=== PATIENT | male | born 1990 ===

== ENCOUNTER 2025-01-20 07:39 | Inpatient (IN) | payer OTHER, SELFPAY ==
[2025-01-20] VITALS (9 sets, daily range): BP systolic 105–145; BP diastolic 74–90; PULSE 65–98; RESP 12–18; TEMP 36–37.2; O2SAT 84–96; BMI 29.0
--- NOTE | 2025-01-20 | ECG_ITS ---
Test Reason : R/O PROLONGED QT WAV Blood Pressure : */* mmHG Vent. Rate : 76 BPM Atrial Rate : 76 BPM P-R Int : 154 ms QRS Dur : 90 ms QT Int : 318 ms P-R-T Axes : 41 29 48 degrees QTcB Int : 357 ms Normal sinus rhythm Nonspecific T wave abnormality Abnormal ECG When compared with ECG of 20-Jan-2025 11:07, No significant change was found Referred By: Wilberto Zeng Electronically Signed By: Julio Anaya
--- NOTE | ~2025-01-20 | XR_ITS ---
EXAMINATION: XR CHEST CLINICAL INFORMATION: hypoxia, overdose, low grade temp COMPARISON: None available. TECHNIQUE: Frontal view of the chest was obtained. FINDINGS: No significant abnormality is noted involving the heart, lungs, mediastinum, bony thorax or soft tissues. XR/XR chest 1V IMPRESSION: No acute disease Electronically signed by: Kolby Cruz MD 01/20/2025 11:39 AM EDT
--- NOTE | 2025-01-20 08:05 | ED_ITS ---
HPI - General Adult General Chief complaint: Overdose Stated complaint: Took high methadone dose Time Seen by Provider: 01/20/25 08:03 Source: patient Mode of arrival: ambulatory Limitations: no limitations History of Present Illness ED Provider: Kym Arnett PA-C HPI narrative: Patient is a 34 year old assigned male at with a history of opiate use - currently on 35mg of methadone presenting to the emergency department today after an accidental overdose. Patient states that he is a patient of the [facility] and was accidentally given 150mg of Methadone by staff this morning instead of his usual 35mg. Patient denies any dizziness, lightheadedness, abdominal pain, nausea, vomiting, fever, chills, blurry vision, double vision, loss of vision, chest pain, difficulty breathing, shortness of breath, back pain, night sweats, pain with urination, increased urinary frequency, increased urinary urgency, blood in his urine or stool, syncope or a near syncopal episode, recent trauma or falls, bowel incontinence, bladder incontinence, or any other complaints at this time. Relieving factors: none Exacerbating factors: none Associated symptoms: denies other symptoms Treatments prior to arrival: none Related Data Home Medications ?Medication ?Instructions ?Recorded ?Confirmed aripiprazole 15 mg tablet 15 mg PO DAILY 01/20/25 atorvastatin 10 mg tablet 10 mg PO BEDTIME hyperlipide cynthia 01/20/25 buprenorphine 8 mg-naloxone 2 mg film sublingual 01/20 sublingual film (Suboxone) ciclopirox 8 % topical solution topical 01/20/25 diclofenac sodium 1 % topical gel 2 - 4 g topical QD-Q ID 01/20/25 fluoxetine 20 mg capsule 20 mg PO DAILY 01/20/25 fluoxetine 40 mg capsule 40 mg PO DAILY 01/20/25 hydroxyzine HCl 50 mg tablet 50 - 100 mg PO QD-QID PRN anxiety 01/20/25 oxcarbazepine 300 mg tablet 300 mg PO BID 01/20/25 prazosin 1 mg capsule 1 mg PO BEDTIME 01/20/25 trazodone 50 mg tablet 50 mg PO BEDTIME PRN insomni a 01/20/25 Allergies Allergy/AdvReac Type Severity Reaction Status Date / Time No Known Allergies Allergy Verified 01/20/25 07:52 Review of Systems 2 Constitutional: Constitutional: Reports no additional constitutional complaints, Denies chills, Denies fever(s) and Denies night sweats Eyes: Eyes: Reports no additional eye complaints, Denies blurry vision, Denies change in vision, Denies diplopia, Denies eye discharge, Denies loss of vision and Denies eye pain ENT: Denies dizziness Cardiovascular: Cardiovascular: Reports no additional cardiovascular complaints, Denies chest pain, Denies lightheadedness, Denies Loss of Consciousness and Denies dyspnea Respiratory: Respiratory: Reports no additional respiratory complaints and Denies dyspnea Gastrointestinal: Gastrointestinal: Reports no additional gastrointestinal complaints, Denies abdominal pain, Denies melena, Denies hematochezia, Denies change in bowel habits and Denies change in stool character Genitourinary: Genitourinary: Reports no additional male genitourinary complaints, Denies hematuria, Denies oliguria, Denies difficulty urinating, Denies dysuria, Denies urinary frequency, Denies urinary hesitancy, Denies urinary incontinence and Denies urinary urgency Musculoskeletal: Musculoskeletal: Reports no additional musculoskeletal complaints, Denies numbness and Denies tingling Neurologic: Denies dizziness, Denies loss of vision, Denies numbness and Denies tingling Psychiatric: Psychiatric: Reports no additional psychiatric complaints Endocrine: Endocrine: Reports no additional endocrine complaints Hematologic/Lymphatic: Hematologic/Lymphatic: Reports no additional hematologic/lymphatic complaints Allergic/Immunologic: Allergic/Immunologic: Reports no additional allergic/immunologic complaints [facility] Past Medical History Attestation statement: The following information was validated with the patient. Source: old records reviewed and nursing notes reviewed Medical History (Updated 01/20/25 @ 11:23 by SMILEY Benavidez) Opiate dependence Surgical History (Updated 01/20/25 @ 11:07 by Wilberto Zeng MD) No pertinent past surgical history Social History Social History (Updated 01/20/25 @ 11:08 by Wilberto Zeng MD) Alcohol intake: former Comment: November 2024 Smoked in Last 30 Days: No Use of substances other than those prescribed or required for medical reasons: Unable to respond Advance Directives: No Advance Directives Information Provided: Yes Physical Exam ED Vital Signs: Vital Signs - 24 hr 01/20/25 07:45 01/20/25 08:42 01/20/25 08:57 Temperature 96.8 F 97.9 F Pulse Rate 98 65 70 Respiratory Rate 18 12 12 Blood Pressure 124/74 107/80 Pulse Oximetry 96 84 L 91 L Oxygen Delivery Method Room Air Room Air Oxymask Oxygen Flow Rate 2 01/20/25 09:38 01/20/25 11:10 Temperature 99.0 F Pulse Rate 76 86 Respiratory Rate 18 16 Blood Pressure 139/90 H 145/79 H Pulse Oximetry 91 L 92 Oxygen Delivery Method Oxymask Oxymask Oxygen Flow Rate 2 2 BMI result Body Mass Index 29.0 Const General: cooperative, no acute distress, alert and awake Nutritional Appearance: well nourished Orientation/consciousness: patient oriented x3 HENMT Head: Yes normal to inspection and Yes atraumatic Ears: hearing grossly normal bilaterally and external ears normal General nose exam: Normal external nose present, no nasal discharge noted and no epistaxis Face and sinus: Yes normal facial exam, No abrasion and No laceration Mouth: Normal oral and palatal mucosa present, no drooling and no muffled voice Eyes General: appearance normal, both eyes and all related structures Periorbital: periorbital findings normal Eyelids: Yes eyelids normal Conjunctivae: conjunctivae normal Pupils: Equal, round and reactive pupils present EOM: EOMs intact bilaterally Neck Neck: Yes normal visual inspection, Yes full ROM and Yes no lymphadenopathy Resp Effort & Inspection: normal respiratory effort and able to speak in complete sentences Neuro General: patient oriented x3, moves all extremities and CN's II-XI intact bilaterally Cranial nerves: Yes Equal, round and reactive pupils present Cognition (Neuro): normal cognition Extrem General: Yes normal to inspection, Yes full ROM and Yes capillary refill normal Psych Appearance: grossly normal Mental Status: mental status grossly normal Affect: normal affect Attitude: cooperative Thought process: Normal thought process present Thought content: Normal thought content present Insight: Good insight present (Psych) Medications Administered Generic Name Dose Route Start Last Admin Trade Name Freq PRN Reason Stop Dose Admin Magnesium Sulfate 2 gm in 50 mls @ 25 mls/hr 01/20/25 09:20 01/20/25 09:37 Magnesium Sulfate/H2o IV 01/20/25 11:19 25 mls/hr ONCE ONE Administration Medical Decision Making Medical Decision Making MDM Narrative: Patient is a 34 year old assigned male at with a history of opiate use - currently on 35mg of methadone presenting to the emergency department today after an accidental overdose. Patient's physical exam showed a somewhat somnolent individual who was easily arousable and protecting his airway appropriately. Poison control was contacted who recommended potassium above 4, calcium WNL, magnesium above 2, Q2 hour EKGs for 12 hours then taper down, and hospital admission for continued evaluation / observation. Patient's blood work was largely unremarkable but he did have a magnesium of 1.9, given poison controls recommendation - 2 grams of mag ordered. Patient's EKG was unremarkable. Patient had some episodes of hypoxia while asleep however, the patient was placed on an oxymask which improved his spo2 to >90%. Poison control recommended narcan only if the patient was to remain hypoxic while on oxygen or was unable to maintain his airway. The addiction team was consulted and agreed with management. I spoke with the hospitalist team who agreed to admission. I explained my physical exam findings as well as all test results to the patient. I answered all questions asked by the patient. Patient verbalized agreement and understanding with this treatment plan and admission. Differential Diagnosis Differential Diagnoses: The differential diagnosis associated with the presentation includes Accidental overdose Methadone overdose Admission/Observation Consideration of admission/observation: Escalation of care including admission/observation considered Patient admitted as noted in the MDM Rationale portion of this note. Consult Healthcare Provider Management of the patient was discussed with: Hospitalist (agreed to admission as noted in the MDM Rationale portion of this note. ) and Rehab Spec (consulted with poison control and the addiction team as noted in the MDM Rationale portion of this note. ) Lab Data [facility] Lab Attestation statement: I reviewed the patient's lab results. My interpretation of these results are in the MDM Rationale portion of this note. 01/20/25 08:51 01/20/25 08:51 Labs: Lab Results 01/20/25 01/20/25 Range/Units 08:51 09:04 WBC 4.7 L (4.8-10.8) X10*3/uL RBC 3.83 L (4.60-5.80) X10*6/uL Hgb 12.7 L (14.0-18.0) g/dl Hct 34.8 L (42.0-52.0) % MCV 90.9 (80.0-98.0) fL MCH 33.2 H (27.0-33.0) pg MCHC 36.5 H (31.0-36.0) g/dl RDW 12.0 (11.0-16.0) % Plt Count 227 (160-400) X10*3/uL MPV 9.8 (9.4-12.4) fL Immature Gran % (Auto) 0.2 (0.0-0.4) % Neut % (Auto) 41.4 L (45-73) % Lymph % (Auto) 45.3 H (20-40) % [place] % (Auto) 8.8 (2-11) % Eos % (Auto) 4.1 H (0-4) % Baso % (Auto) 0.2 (0-2) % Lymph # (Auto) 2.1 (1.2-4.9) X10*3/uL [place] # (Auto) 0.4 (0.1-1.2) X10*3/uL Eos # (Auto) 0.2 (0.0-0.4) X10*3/uL Baso # (Auto) 0.0 (0.0-0.2) X10*3/uL Abs Immat Gran (auto) 0.01 (0.00-0.03) X10*3/uL Absolute Neuts (auto) 1.9 L (2.0-8.3) x10*3/uL Absolute Nucleated RBC 0.000 (0.0-0.012) X10*3/uL Nucleated RBC % (auto) 0.0 (0.0-0.2) /100WBC Sodium 141 (135-145) mmol/L Potassium 4.4 (3.3-5.1) mmol/L Chloride 107 (96-108) mmol/L Carbon Dioxide 28 (22-29) mmol/L Anion Gap 10 L (12-20) BUN 13 (9-16) mg/dL Creatinine 0.92 (0.5-1.4) mg/dL Estim Creat Clear Calc 139.2 Estimated GFR > 60 Random Glucose 108 (60-115) mg/dL Calcium 9.3 (8.4-10.2) mg/dL Phosphorus 4.9 H (2.7-4.5) mg/dL Magnesium 1.9 (1.6-2.6) mg/dL Total Bilirubin 0.5 (0.0-1.0) mg/dL AST 42 H (5-37) U/L ALT 89 H (0-40) U/L Alkaline Phosphatase 65 (39-117) U/L Total Protein 7.0 (6.5-8.0) g/dL Albumin 4.4 (3.5-5.0) g/dL Salicylates < 5.0 L (15-30) mg/dL Acetaminophen < 3 (<30) mcg/mL Ethyl Alcohol < 10 mg/dL Independent Interpretation I performed an independent interpretation of an: EKG Interpretation: I independently interpreted this EKG and am in agreement with the below findings: Vent. Rate: 69 BPM Atrial Rate: 69 BPM P-R Int: 144 ms QRS Dur: 88 ms QT Int: 388 ms P-R-T Axes: 41 35 47 degrees QTcB Int: 415 ms Normal sinus rhythm Normal ECG No previous ECGs available DD/ [id number] Critical Care Time Critical Care Time Critical Care Time: Yes Total Critical Care Time: 51 Attestation: I spent 51 minutes of Critical Care Time with this patient. This does not include time spent on separately reported billable procedures. Discharge Plan Discharge Clinical Impression: Accidental methadone overdose Patient Disposition: Admitted As Inpatient Print Language: Danish
--- NOTE | 2025-01-20 08:30 | ECG_ITS ---
Test Reason : prolonged qt Blood Pressure : */* mmHG Vent. Rate : 69 BPM Atrial Rate : 69 BPM P-R Int : 144 ms QRS Dur : 88 ms QT Int : 388 ms P-R-T Axes : 41 35 47 degrees QTcB Int : 415 ms Normal sinus rhythm Normal ECG No previous ECGs available Referred By: Kym Arnett Electronically Signed By: Julio Anaya
--- OUTSIDE RECORDS SUMMARY | 2025-01-20 08:41 | XMS_ITS | Patient Health Record ---
Author Organization [facility] [address] [place] [address] [address] Address [address] [place] [id number] Care Team Providers Care Oil Field Technician Name Role Phone Cole FIGUEREDO, Cristian Primary Care Provider Belinda Minaya MD, Gee Unavailable Unavailable Reason For Referral No Information Medications Medication SIG (Take, Route, Fr equency, Duration) Notes Start Date End Date Status Topiramate 25 MG 1 tablet at bedtime for 1 week and then increase to 1 tab BID Orally BID for 30 day(s) 07/06/2020 Active SEROquel Not-Taking Problems Problem Type SNOMED Code ICD Code Onset Dates Problem Status W/U Status Risk Notes Problem 83822596 Post concussion syndrome (F07.81) Active confirmed Plan Of Treatment No Information Insurance Providers Payer Name Payer Address Payer Phone Subscriber Number Group Number Insured Name Patient Relationship to Insured Coverage Start Date Coverage End Date [facility] [employer] [address] [place] [address] [id number] KanuMariano Self - patient is the insured Medical (General) History Medical History History ICD Code anxiety
--- NOTE | 2025-01-20 08:53 | ECG_ITS ---
Test Reason : R/O PROLONGED QT WAVES Blood Pressure : */* mmHG Vent. Rate : 81 BPM Atrial Rate : 81 BPM P-R Int : 146 ms QRS Dur : 90 ms QT Int : 308 ms P-R-T Axes : 35 19 39 degrees QTcB Int : 357 ms Normal sinus rhythm Normal ECG When compared with ECG of 20-Jan-2025 08:47, QT has shortened Referred By: Wilberto Zeng Electronically Signed By: Julio Anaya
[2025-01-20 08:55] LABS: MANUAL DIFF FLAG NO
[2025-01-20 08:56] LABS: Basophils Percent Auto 0.2 % (0-2); Eosinophils Absolute Auto 0.2 X10*3/uL (0.0-0.4); Eosinophils Percent Auto 4.1 % (0-4); Hematocrit 34.8 % (42.0-52.0); Hemoglobin 12.7 g/dl (14.0-18.0); Imm Gran Abs Auto 0.01 X10*3/uL (0.00-0.03); Imm Gran Pct Auto 0.2 % (0.0-0.4); Lymphocytes Absolute Auto 2.1 X10*3/uL (1.2-4.9); Lymphocytes Percent Auto 45.3 % (20-40); Mean Corpuscular HGB Conc 36.5 g/dl (31.0-36.0); Mean Corpuscular Hemoglobin 33.2 pg (27.0-33.0); Mean Corpuscular Volume 90.9 fL (80.0-98.0); Mean Platelet Volume 9.8 fL (9.4-12.4); Monocytes Absolute Auto 0.4 X10*3/uL (0.1-1.2); Monocytes Percent Auto 8.8 % (2-11); Neutrophils Absolute Auto 1.9 x10*3/uL (2.0-8.3); Neutrophils Percent Auto 41.4 % (45-73); Platelet Count 227 X10*3/uL (160-400); Red Blood Count 3.83 X10*6/uL (4.60-5.80); White Blood Count 4.7 X10*3/uL (4.8-10.8)
--- NOTE | 2025-01-20 08:58 | PC.NURSE ---
pt comes in the ED dropped off by [facility] stating that they overdosed his methadone. Pt should be taking 35mg (recently switched to methadone from suboxone). The clinic gave him 150mg. Pt is sleepy and lethargic but wakes easily to verbal stimuli. He is hypoxic on RA in the 80s. On Oxymask at 2L he goes between 88-94%. Per PA, plan is to keep pt 88% or above on the oxymask and not to give narcan unless pt is unarousable or is hypoxic below 88%. Called poison control. They advise: Q2H EKG x3 and phase out. looking for QT prolongation. Labs as ordered They advise K >4, Mag >2, and Calcium WNL. 20gIV left forearm. NSR on tele. RR 12
[2025-01-20 09:10] LABS: Alanine Aminotransferase 89 U/L (0-40); Albumin Level 4.4 g/dL (3.5-5.0); Alkaline Phosphatase 65 U/L (39-117); Anion Gap 10 (12-20); Aspartate Amino Transferase 42 U/L (5-37); Bilirubin Total 0.5 mg/dL (0.0-1.0); Blood Urea Nitrogen 13 mg/dL (9-16); Calcium 9.3 mg/dL (8.4-10.2); Carbon Dioxide 28 mmol/L (22-29); Chloride 107 mmol/L (96-108); Creatinine Clr Calc Pharmacy 139.2; Estimated Glomerular Filt Rate > 60; Glucose Random 108 mg/dL (60-115); Magnesium 1.9 mg/dL (1.6-2.6); Phosphorus 4.9 mg/dL (2.7-4.5); Potassium 4.4 mmol/L (3.3-5.1); Sodium 141 mmol/L (135-145)
[2025-01-20 09:25] LABS: Acetaminophen LAB < 3 mcg/mL (<30); Ethanol < 10 mg/dL; Salicylate < 5.0 mg/dL (15-30)
[2025-01-20] MEDS: Magnesium Sulfate/H2O 2 GM/50 ML PIGGYBACK IV (09:37)
--- NOTE | 2025-01-20 11:00 | PM.IMHP ---
History of Present Illness Date of Service: 01/20/25 Chief Complaint: accidental overdose The patient is a 34-year-old male with a past medical history of mood disorder, opiate use disorder previously on Suboxone, currently transitioned to methadone who presents to the emergency room after an accidental overdose. Reportedly, the patient is on 35 mg of methadone at the [facility] clinic and was given 150 mg in error. On arrival to the emergency room the patient was drowsy but able to answer questions. He was desaturating into the 80s on RA. He was placed on oxymask with SpO2 maintaining mid 90s. The ED provider discussed his case with poison control who recommended monitoring in the hospital + K>4, Mg>2, Ca WNL; recommended to give Narcan only if not maintaining airway or hypoxic despite oxymask, to check EKG q2H x 12 hours and then as needed. Pt seen and examined in the ED around 1030AM. He is drowsy but able to answer questions. He states that he has been clean since November of this year including opiates and alcohol. He reports that he was on Suboxone but has been transitioned to 35 mg of methadone which he has been on for at least several days. He reports being on other medications as well but is unsure what the diagnosis is. He denies a medical history including diabetes, hypertension, hyperlipidemia, lung disease, renal disease. Review of Systems Review of Systems: Negative except HPI/interval history. [facility] Medical History Opiate dependence Pertinent family history: Denies Surgical History No pertinent past surgical history Social History (Updated 01/20/25 @ 11:08 by Wilberto Zeng MD) Household Members: Other Household Members Other:: current program with other participants, Housing: Other Housing Other:: sobriety program house. Do you presently have visiting nurse or other home services: No Alcohol intake: former Comment: November 2024 Patient Tobacco Use Status: Former Tobacco user Tobacco use type: Cigarette service: No Meds Allergies Allergy/AdvReac Type Severity Reaction Status Date / Time No Known Allergies Allergy Verified 01/20/25 07:52 Active Medications: Current Medications Magnesium Sulfate (Magnesium Sulfate/H2o) 2 gm in 50 mls @ 25 mls/hr IV ONCE ONE Stop: 01/20/25 11:19 Last Admin: 01/20/25 09:37 Dose: 25 mls/hr Home Medications ?Medication ?Instructions ?Recorded ?Confirmed ?Last Taken ?Type aripiprazole 15 mg tablet 15 mg PO DAILY 01/20/25 01/20/25 01/20/25 History atorvastatin 10 mg tablet 10 mg PO BEDTIME hyperlipidemia 01/20/25 01/20/25 01/19/25 History ciclopirox 8 % topical solution 1 appl topical BID PRN Fungal 01/20/25 01/20/25 Unknown History Infection fluoxetine 20 mg capsule 20 mg PO DAILY 01/20/25 01/20/25 01/20/25 History fluoxetine 40 mg capsule 40 mg PO DAILY 01/20/25 01/20/25 01/20/25 History hydroxyzine HCl 50 mg tablet 50 - 100 mg PO QD-QID PRN anxiety 01/20/25 01/20/25 Unknown History methadone 10 mg/mL oral 35 mg PO DAILY 01/20/25 Unknown History concentrate (Methadone Intensol) oxcarbazepine 300 mg tablet 300 mg PO BID 01/20/25 01/20/25 01/20/25 History prazosin 1 mg capsule 1 mg PO BEDTIME 01/20/25 01/20/25 01/19/25 History trazodone 50 mg tablet 50 mg PO BEDTIME PRN insomnia 01/20/25 01/20/25 Unknown History Physical Exam Vital Signs and Narrative: Vital Signs: Last Vital Signs Temp 97.9 F 01/20/25 08:42 Pulse 76 01/20/25 09:38 Resp 18 01/20/25 09:38 BP 139/90 H 01/20/25 09:38 Pulse Ox 91 L 01/20/25 09:38 O2 Del Method Oxymask 01/20/25 09:38 O2 Flow Rate 2 01/20/25 09:38 BMI result Body Mass Index 29.0 Const: Other: Constitutional - Awake but drowsy, able to converse; oriented x 3 Eyes - PERRLA, EOMI Cardiovascular - S1S2, RRR, No edema Respiratory - Normal lung expansion, Normal respiratory effort, No respiratory distress, CTA bilaterally Gastrointestinal - NT / ND; +BS; No rebound or guarding - No CVA tenderness Extremities - no calf tenderness bilaterally, no swelling Musculoskeletal - Normal inspection, normal ROM Skin - Warm/Dry Neurological - Alert & oriented x3, No focal deficit Psychological - Appropriate affect Results Labs 01/21/25 06:48 01/21/25 06:43 Labs: Laboratory Results - last 24 hr 01/20/25 01/20/25 08:51 09:04 MCV 90.9 MCH 33.2 H MCHC 36.5 H RDW 12.0 Plt Count 227 MPV 9.8 Immature Gran % (Auto) 0.2 Neut % (Auto) 41.4 L Lymph % (Auto) 45.3 H [place] % (Auto) 8.8 Eos % (Auto) 4.1 H Baso % (Auto) 0.2 Lymph # (Auto) 2.1 [place] # (Auto) 0.4 Eos # (Auto) 0.2 Baso # (Auto) 0.0 Abs Immat Gran (auto) 0.01 Absolute Neuts (auto) 1.9 L Absolute Nucleated RBC 0.000 Nucleated RBC % (auto) 0.0 Anion Gap 10 L Estim Creat Clear Calc 139.2 Estimated GFR > 60 Random Glucose 108 Calcium 9.3 Phosphorus 4.9 H Magnesium 1.9 Total Bilirubin 0.5 AST 42 H ALT 89 H Alkaline Phosphatase 65 Total Protein 7.0 Albumin 4.4 Salicylates < 5.0 L Acetaminophen < 3 Ethyl Alcohol < 10 Assessment and Plan (1) Accidental methadone overdose: Qualifiers: Encounter type: initial encounter Qualified Code(s): T40.3X1A - Poisoning by methadone, accidental (unintentional), initial encounter Status: Acute Plan 34 yo M with opiate dependence on methadone 35mg who presents with reported accidental overdose by [facility] (administered 150mg per ED reports). He is noted to have hypoxia due to hypoventilation. Will be admitted for further monitoring and treatment. 1. Accident opiate overdose 1a. Acute respiratory failure with hypoxia Follow poison control recs (per ED provider -- the following recommended: K>4, Mg>2, Ca WNL, monitor SpO2 and use Oxymask; EKG q2h x 12 hours for qtc prolongation; use Narcan if not maintaing airway/hypoxic despite oxymask check vbg/cxr now -- VBG with pH maintained, PCO2 55, HCO3 29; cxr without acute findings monitor on tele, close monitoring of resp status case d/w ICU -- if deteriorates, will require transfer 2. Mood disorder hold all meds for now Full Code DVT pptx, Lovenox Quality Stroke Does the patient have a stroke diagnosis?: No VTE Prior VTE?: No VTE Risk Level:: Medical - moderate - high VTE Device Contraindication: N/A - Device Ordered VTE Drug Contraindication: N/A - Med Ordered
--- NOTE | 2025-01-20 11:12 | PC.NURSE ---
Provider Zeng informed via tiget connect that pt. becoming diaphoretic, low grade temp. Applying cool towels and ivf as ordered.
[2025-01-20] MEDS: Dextrose 5 % and Lactated Ring 1,000 ML 100 ML IVCONT ×2 (11:20→20:33)
[2025-01-20] MEDS: Enoxaparin Sodium 40 MG/0.4 ML SYRINGE SUBCUT (11:25)
[2025-01-20 11:27] LABS: Venous Blood Gas Refer to POC result
[2025-01-20 11:29] LABS: VBG Base Excess 1.8 mmol/L; VBG HCO3 29 mmol/L (22-26); VBG pCO2 55 mmHg; VBG pH 7.32 (7.32-7.43); VBG pO2 127 mmHg
--- NOTE | 2025-01-20 11:30 | PC.NURSE ---
Spoke with Beto from Poison Control, elan on pt condition. pt continues to be drowsy, still requiring O2 @ 2l via oxymask current SpO2 92%. Repeat EKG was obtained findigns as follows: Vent. rate 81BPM [place] [id number] QRS duration 90ms [id number] Poison control recommends repeat LFT's at 1530- MD Zeng notified via [employer]. plan is for admission to medtele floor for further eval and management
--- NOTE | 2025-01-20 11:30 | PC.NURSE ---
Provider placed orders.
--- NOTE | 2025-01-20 12:00 | PC.NURSE ---
Jyothi from [facility] called and informed this RN that a roundhouse supervisor, Yulisa needs to be called when pt. is dc. [phone]. Informed Jyothi that she will need to call for updtes.
--- NOTE | 2025-01-20 12:32 | HO.ADDICT_ITS ---
History of Present Illness Date of Service: 01/20/2025 Chief Complaint: Overdose Reason for Consult: received incorrect methadone dose Discussed with referring provider: Yes Sources of Information: patient interviewed and chart reviewed HPI Narrative: Patient is a 34 year old male with unknown medical history who presented to [facility] after mistakenly being administered someone else's methadone dose. Patient resides at [facility] in [place], and this morning due to the holiday medication was administered at [facility] and not [facility]. Per RN, who states she was not there when medication was administered, patient was administered dose of 150mg at 5:45am Patient's actual ordered dose of methadone is 35mg daily. The error was discovered about an hour or so after and patient was immediately brought to the ED. Patient hypoxic upon arrival sats in the 80's. Drowsy, but responsive to voice Oxymask 2L applied with positive effect sats remaining in the 90s Poison control contacted who recommended Q2H EKG x3, monitor lytes with K>4 and Mg >2, monitor LFTS and medical admission Patient seen by t/w in ED room 24. He wakes easily to voice, but has a very hard time keeping his eyes open. He is oriented to self and situation. States he is new to methadone and just started earlier this week--previously prescribed buprenorphine. Dose verified with [facility] --last dose 35mg on 01/19, with one take home bottle, 35mg, due to the holiday. Medical Evaluation Reviewed: Yes Review of Systems Constitutional: Reports as per HPI (reports feeling very tired ) Diagnostics Vital Signs (24Hr): Vital Signs - 24 hr 01/20/25 07:45 01/20/25 08:42 01/20/25 08:57 Temperature 96.8 F 97.9 F Pulse Rate 98 65 70 Respiratory Rate 18 12 12 Blood Pressure 124/74 107/80 Pulse Oximetry 96 84 L 91 L Oxygen Delivery Method Room Air Room Air Oxymask Oxygen Flow Rate 2 01/20/25 09:38 01/20/25 11:10 Temperature 99.0 F Pulse Rate 76 86 Respiratory Rate 18 16 Blood Pressure 139/90 H 145/79 H Pulse Oximetry 91 L 92 Oxygen Delivery Method Oxymask Oxymask Oxygen Flow Rate 2 2 BMI result Body Mass Index 29.0 Labs 01/20/25 08:51 01/20/25 08:51 Labs: Laboratory Results - last 48 hr 01/20/25 01/20/25 01/20/25 08:51 09:04 11:24 WBC 4.7 L RBC 3.83 L Hgb 12.7 L Hct 34.8 L MCV 90.9 MCH 33.2 H MCHC 36.5 H RDW 12.0 Plt Count 227 MPV 9.8 Immature Gran % (Auto) 0.2 Neut % (Auto) 41.4 L Lymph % (Auto) 45.3 H [place] % (Auto) 8.8 Eos % (Auto) 4.1 H Baso % (Auto) 0.2 Lymph # (Auto) 2.1 [place] # (Auto) 0.4 Eos # (Auto) 0.2 Baso # (Auto) 0.0 Abs Immat Gran (auto) 0.01 Absolute Neuts (auto) 1.9 L Absolute Nucleated RBC 0.000 Nucleated RBC % (auto) 0.0 VBG pH 7.32 VBG pCO2 55 VBG pO2 127 VBG HCO3 29 H VBG O2 Saturation 99.0 VBG Base Excess 1.8 Sodium 141 Potassium 4.4 Chloride 107 Carbon Dioxide 28 Anion Gap 10 L BUN 13 Creatinine 0.92 Estim Creat Clear Calc 139.2 Estimated GFR > 60 Random Glucose 108 Calcium 9.3 Phosphorus 4.9 H Magnesium 1.9 Total Bilirubin 0.5 AST 42 H ALT 89 H Alkaline Phosphatase 65 Total Protein 7.0 Albumin 4.4 Salicylates < 5.0 L Acetaminophen < 3 Ethyl Alcohol < 10 Imaging Radiology Impressions: ITS Impressions Chest X-Ray 01/20/25 10:26 IMPRESSION: No acute disease Electronically signed by: Kolby Cruz MD 01/20/2025 11:39 AM EDT RP Mental Status Exam Mental Status Exam Patient Behavior: Appropriate Medications Medications Current Medications Acetaminophen (Acetaminophen 325 Mg Tablet) 650 mg PO Q6H PRN PRN Reason: Pain, Mild 1-3,fever,headache Calcium Carbonate (Calcium Carbonate 750 Mg Tab.Chew) 750 mg PO Q4H PRN PRN Reason: Heartburn Enoxaparin Sodium (Enoxaparin Sodium 40 Mg/0.4 Ml Syringe) 40 mg SUBCUT Q24H RL Last Admin: 01/20/25 11:25 Dose: 40 mg Dextrose/Lactated Ringer's (D5lr) 1,000 mls @ 100 mls/hr IVCONT .Q10H RL Stop: 01/21/25 06:59 Last Admin: 01/20/25 11:20 Dose: 100 mls/hr Magnesium Hydroxide (Milk Of Magnesia 30 Ml Oral.Susp) 30 ml PO DAILY PRN PRN Reason: Constipation Melatonin (Melatonin 3 Mg Tablet) 6 mg PO BEDTIME PRN PRN Reason: Insomnia Sodium Chloride (0.9 % Sodium Chloride Flush 3 Ml Syringe) 3 ml IVFLUSH QSHIFT RL Allergies Allergies Allergy/AdvReac Type Severity Reaction Status Date / Time No Known Allergies Allergy Verified 01/20/25 07:52 Assessment & Plan Assessment & Plan (1) Accidental methadone overdose: Qualifiers: Encounter type: initial encounter Qualified Code(s): T40.3X1A - Poisoning by methadone, accidental (unintentional), initial encounter Status: Acute Code(s): T40.3X1A - Poisoning by methadone, accidental (unintentional), initial encounter Assessment and Plan: * patient admitted to med/tele --monitoring per poison control recs--narcan not needed as patient maintaining airway and sats in the 90s with O2. * t/w notified [facility] provider about medication error (2) Opioid use disorder: Status: Acute Code(s): F11.90 - Opioid use, unspecified, uncomplicated Assessment and Plan: * home methadone dose verified--on hold Total time managing care of this patient today __45__ minutes. PMFSH Past Medical History Medical History (Updated 01/20/25 @ 14:19 by Bobbi Muñoz CNP) Opiate dependence Surgical History Surgical History (Updated 01/20/25 @ 11:07 by Wilberto Zeng MD) No pertinent past surgical history Social History Social History (Updated 01/20/25 @ 11:08 by Wilberto Zeng MD) Alcohol intake: former Comment: November 2024 Smoked in Last 30 Days: No Use of substances other than those prescribed or required for medical reasons: Unable to respond Advance Directives: No Advance Directives Information Provided: Yes
--- NOTE | 2025-01-20 12:32 | PHA.MEDREC ---
Addendum entered by Lyndon Webb PharmD 01/20/25 13:04: reviewed Original Note: Pharmacy Consult ? Medication Reconciliation Pharmacy has completed the medication reconciliation. Spoke with pt and he confirmed his medications. Pt confirmed his Methadone and confirmed he usually gets 135mg from the clinic but stated they overdosed him today and gave the him 150mg.
--- NOTE | 2025-01-20 14:00 | PC.NURSE ---
spoke with Cassi at Poison control- updated on pt condition. pt desat to 85% on RA- pt continues to require 2L o2 via oxymask to maintain above 92%. Pt continues to report dorwsiness. Repeat EKG was conducted as ordered: findings were as follows: Vent. rate 76BPM NM interval:154 QRS duration 90ms [id number]/357ms Repeat LFT's to be drawn at 1530
--- NOTE | 2025-01-20 15:39 | PC.NURSE ---
pt called t/w into room, advised pt is being admitted to the hospital. pt initially thought he had already been in dept for 1 full day. re-oriented pt to time, situation, and plan of care, call cedeño within reach. Plan is for admission to med tele. per MD Karri castañeda for ice chips if pt awake/alert enough.
--- NOTE | 2025-01-20 15:54 | PC.NURSE ---
spoke with JUANCARLOS charles [facility]- RN Janine washburn pt was seen in clinic on 01/19 given 35mg (induction dosing) and was provided 1 take home bottle. Methadone verification faxed to pharmacy
[2025-01-20 15:56] LABS: Alanine Aminotransferase 93 U/L (0-40); Albumin Level 4.5 g/dL (3.5-5.0); Alkaline Phosphatase 66 U/L (39-117); Aspartate Amino Transferase 45 U/L (5-37); Bilirubin Direct 0.1 mg/dL (0.0-0.5); Bilirubin Total 0.4 mg/dL (0.0-1.0); Total Protein 7.2 g/dL (6.5-8.0)
[2025-01-20] MEDS: Acetaminophen 325 MG TABLET 650 MG PO (16:25)
--- NOTE | 2025-01-20 16:28 | PC.NURSE ---
pt medicated per MAR for 3 BLUE pain
[2025-01-20 16:40] LABS: Amphetamine Screen Urine Not Detected (Not Detect); Barbiturates, Urine Not Detected (Not Detect); Benzodiazepines Screen Urine Not Detected (Not Detect); Buprenorphine Scr Positive (Not Detect); Cannabinoid Screen Urine Not Detected (Not Detect); Cocaine Screen Urine Not Detected (Not Detect); Fentanyl, urine Not Detected (Not Detect); Methadone Screen, Urine Positive (Not Detect); Opiate Screen Urine Not Detected (Not Detect); Oxycodone Screen Urine Not Detected (Not Detect); Phencyclidine Screen Urine Not Detected (Not Detect)
--- NOTE | 2025-01-20 17:22 | HE.PHANOTE ---
Methadone Methadone verified with [facility] [phone] by Diamond. Patient last received 35 mg on 01/19/25 @0800 along with 1 take home bottle per Janine LOPES.
--- NOTE | 2025-01-20 17:52 | PC.NURSE ---
spoke with Regina from poison control- updated on pt condition\> Poison control rec repeat EKG's q4h and continuous cardiac monitoring. pt much more awake and alert- able to swallow APAP and drink water without issue. SMILEY Merritt notified of P.[facility]. recommendations. Per SMILEY Merritt Pt okay to eat at this time. regular diet order entered.
--- NOTE | 2025-01-20 17:59 | ECG_ITS ---
Test Reason : ?PROLONG QT Blood Pressure : */* mmHG Vent. Rate : 77 BPM Atrial Rate : 77 BPM P-R Int : 154 ms QRS Dur : 90 ms QT Int : 378 ms P-R-T Axes : 34 8 40 degrees QTcB Int : 427 ms Normal sinus rhythm Nonspecific T wave abnormality Abnormal ECG When compared with ECG of 20-Jan-2025 12:55, QT has lengthened Referred By: Roz Merritt Electronically Signed By: Julio Anaya
--- NOTE | 2025-01-20 18:54 | PC.NURSE ---
[id number] reviewed by attending ED MD and sent via tiger to SMILEY Merritt
--- NOTE | 2025-01-20 19:41 | PC.NURSE ---
Provider went and spoke to pt. Pt. okay with admission.
--- NOTE | 2025-01-20 19:42 | PC.NURSE ---
Pt seen at bedside by MD Thakur, pt requesting D/C if I'm well enough to go home advised pt is awaiting bed assignment, and it is recommended pt stay in hospital- pt verbalizes understanding that plan is for admission to inpatient floor. pt offers no other complaints at this time
[2025-01-20 21:30] LABS: Venous Blood Gas Refer to POC result
[2025-01-20 21:31] LABS: VBG Base Excess 6.1 mmol/L; VBG HCO3 33 mmol/L (22-26); VBG pCO2 60 mmHg; VBG pH 7.34 (7.32-7.43); VBG pO2 66 mmHg
--- NOTE | 2025-01-20 21:59 | ECG_ITS ---
Test Reason : QTC CHECK Blood Pressure : */* mmHG Vent. Rate : 76 BPM Atrial Rate : 76 BPM P-R Int : 156 ms QRS Dur : 90 ms QT Int : 374 ms P-R-T Axes : 40 20 46 degrees QTcB Int : 420 ms Normal sinus rhythm T wave abnormality, consider lateral ischemia Abnormal ECG When compared with ECG of 20-Jan-2025 18:40, Inverted T waves have replaced nonspecific T wave abnormality in Lateral leads Referred By: Wilberto Zeng Electronically Signed By: Julio Anaya
--- NOTE | 2025-01-20 22:24 | PC.NURSE ---
pt continues to remove oxymask- pt educated on importance of wearing oxymask- verbalizes understanding. pt resting in hopsital bed awaiting inpatient bed assignment
[2025-01-21 01:17] VITALS: PULSE 73; RESP 20; O2SAT 96
--- NOTE | 2025-01-21 01:59 | ECG_ITS ---
Test Reason : QTC CHECK Blood Pressure : */* mmHG Vent. Rate : 71 BPM Atrial Rate : 71 BPM P-R Int : 150 ms QRS Dur : 94 ms QT Int : 380 ms P-R-T Axes : 40 34 41 degrees QTcB Int : 412 ms Normal sinus rhythm Nonspecific T wave abnormality Abnormal ECG When compared with ECG of 20-Jan-2025 22:39, No significant change was found Referred By: Roz Merritt Electronically Signed By: Julio Anaya
[2025-01-21 02:04] VITALS: BP 108/75; PULSE 79; RESP 16; TEMP 36.2; O2SAT 95
[2025-01-21 02:10] VITALS: O2SAT 95
[2025-01-21 03:08] VITALS: BMI 28.8
[2025-01-21 03:53] VITALS: BP 122/62; PULSE 69; RESP 17; TEMP 36.3; O2SAT 93
--- NOTE | 2025-01-21 05:59 | ECG_ITS ---
Test Reason : methadone overdose Blood Pressure : */* mmHG Vent. Rate : 72 BPM Atrial Rate : 72 BPM P-R Int : 162 ms QRS Dur : 88 ms QT Int : 376 ms P-R-T Axes : 39 41 56 degrees QTcB Int : 411 ms Normal sinus rhythm Nonspecific T wave abnormality Abnormal ECG When compared to the previous EKG of No significant changes seen Referred By: Roz Merritt Electronically Signed By: Julio Anaya
[2025-01-21 07:35] LABS: Hematocrit 34.4 % (42.0-52.0); Hemoglobin 11.8 g/dl (14.0-18.0); Mean Corpuscular HGB Conc 34.3 g/dl (31.0-36.0); Mean Corpuscular Hemoglobin 32.5 pg (27.0-33.0); Mean Corpuscular Volume 94.8 fL (80.0-98.0); Mean Platelet Volume 10.2 fL (9.4-12.4); Platelet Count 233 X10*3/uL (160-400); Red Blood Count 3.63 X10*6/uL (4.60-5.80); Red Cell Distribution Width 11.9 % (11.0-16.0); White Blood Count 5.5 X10*3/uL (4.8-10.8)
[2025-01-21 07:51] LABS: Alanine Aminotransferase 76 U/L (0-40); Alkaline Phosphatase 70 U/L (39-117); Anion Gap 10 (12-20); Aspartate Amino Transferase 43 U/L (5-37); Bilirubin Total 0.3 mg/dL (0.0-1.0); Blood Urea Nitrogen 10 mg/dL (9-16); Calcium 9.1 mg/dL (8.4-10.2); Carbon Dioxide 28 mmol/L (22-29); Chloride 105 mmol/L (96-108); Creatinine Clr Calc Pharmacy 137.3; Estimated Glomerular Filt Rate > 60; Glucose Random 102 mg/dL (60-115); Sodium 139 mmol/L (135-145); Total Protein 6.3 g/dL (6.5-8.0)
[2025-01-21 07:53] VITALS: BP 115/67; PULSE 88; RESP 20; TEMP 36.2; O2SAT 96
--- NOTE | 2025-01-21 09:58 | PM.DS ---
DS: Providers Provider Date of Service: 01/21/25 Date of admission: 01/20/25 10:56 Date of discharge: 01/21/25 Primary care physician: Unknown Physician Consults: 01/21/25 03:37 Addiction Medicine Provider Routine Consulting Provider: Addiction Dalia Reason for consultation: pt in a sober program, had incident at program & may need further support. Has provider been notified: No 01/21/25 09:16 Inpt - Recovery Team Routine Comment: Reason for consultation: bh/jordin eval Attending physician on discharge: [facility] Discharging clinician: Roz Merritt DS: Diagnosis Discharge Diagnosis (1) Accidental methadone overdose: Status: Acute (2) Opioid use disorder: Status: Acute DS: Summary Hospital Course Hospital Course: From H&P on the day of admission The patient is a 34-year-old male with a past medical history of mood disorder, opiate use disorder previously on Suboxone, currently transitioned to methadone who presents to the emergency room after an accidental overdose. Reportedly, the patient is on 35 mg of methadone at the [facility] clinic and was given 150 mg in error. On arrival to the emergency room the patient was drowsy but able to answer questions. He was desaturating into the 80s on RA. He was placed on oxymask with SpO2 maintaining mid 90s. The ED provider discussed his case with poison control who recommended monitoring in the hospital + K>4, Mg>2, Ca WNL; recommended to give Narcan only if not maintaining airway or hypoxic despite oxymask, to check EKG q2H x 12 hours and then as needed. Pt seen and examined in the ED around 1030AM. He is drowsy but able to answer questions. He states that he has been clean since November of this year including opiates and alcohol. He reports that he was on Suboxone but has been transitioned to 35 mg of methadone which he has been on for at least several days. He reports being on other medications as well but is unsure what the diagnosis is. He denies a medical history including diabetes, hypertension, hyperlipidemia, lung disease, renal disease. Accident opiate overdose Acute respiratory failure with hypoxia Follow poison control recs. EKGs followed per poison control recommendations, no QTC prolongation. LFTs have remained stable. Patient was weaned off of supplemental oxygen and currently stable off of oxygen. Awake alert. Seen by addiction medicine and will resume regular dose of methadone starting tomorrow. Time Attestation Discharge Coordination Time (in mins): 35 Quality: Safe Use of Opioids Does Pt have an Active Cancer Diagnosis on the Problem List?: No Quality: Stroke Does the patient have a stroke diagnosis?: No Physical Exam Vital Signs: Vital Signs: Last Vital Signs Temp 97.1 F 01/21/25 07:53 Pulse 88 01/21/25 07:53 Resp 20 01/21/25 07:53 BP 115/67 01/21/25 07:53 Pulse Ox 96 01/21/25 07:53 O2 Del Method Oxymask 01/21/25 07:53 O2 Flow Rate 3 01/21/25 07:53 BMI result Body Mass Index 28.8 Const: General: cooperative, comfortable, no acute distress, alert and awake Nutritional Appearance: average body habitus Orientation/consciousness: patient oriented x3 Resp: Effort & Inspection: no respiratory distress and no use of accessory muscles Neuro: General: patient oriented x3, moves all extremities and CN's II-XI intact bilaterally DS: Data Data Completed and Pending Labs on day of discharge: Laboratory Results - last 24 hr 01/20/25 01/20/25 01/20/25 11:24 15:27 16:24 WBC RBC Hgb Hct MCV MCH MCHC RDW Plt Count MPV Absolute Nucleated RBC Nucleated RBC % (auto) VBG pH 7.32 VBG pCO2 55 VBG pO2 127 VBG HCO3 29 H VBG O2 Saturation 99.0 VBG Base Excess 1.8 Sodium Potassium Chloride Carbon Dioxide Anion Gap BUN Creatinine Estim Creat Clear Calc Estimated GFR Random Glucose Calcium Total Bilirubin 0.4 Direct Bilirubin 0.1 AST 45 H ALT 93 H Alkaline Phosphatase 66 Total Protein 7.2 Albumin 4.5 Urine Opiates Screen Not Detected Ur Buprenorphine Scrn Positive H Ur Oxycodone Screen Not Detected Urine Methadone Screen Positive H Urine Fentanyl Screen Not Detected Ur Barbiturates Screen Not Detected Ur Phencyclidine Scrn Not Detected Ur Amphetamines Screen Not Detected U Benzodiazepines Scrn Not Detected Urine Cocaine Screen Not Detected U Marijuana (THC) Screen Not Detected 01/20/25 01/21/25 01/21/25 21:27 06:43 06:48 WBC 5.5 RBC 3.63 L Hgb 11.8 L Hct 34.4 L MCV 94.8 MCH 32.5 MCHC 34.3 RDW 11.9 Plt Count 233 MPV 10.2 Absolute Nucleated RBC 0.000 Nucleated RBC % (auto) 0.0 VBG pH 7.34 VBG pCO2 60 VBG pO2 66 VBG HCO3 33 H VBG O2 Saturation 90.0 VBG Base Excess 6.1 Sodium 139 Potassium 4.0 Chloride 105 Carbon Dioxide 28 Anion Gap 10 L BUN 10 Creatinine 0.93 Estim Creat Clear Calc 137.3 Estimated GFR > 60 Random Glucose 102 Calcium 9.1 Total Bilirubin 0.3 Direct Bilirubin AST 43 H ALT 76 H Alkaline Phosphatase 70 Total Protein 6.3 L Albumin 4.0 Urine Opiates Screen Ur Buprenorphine Scrn Ur Oxycodone Screen Urine Methadone Screen Urine Fentanyl Screen Ur Barbiturates Screen Ur Phencyclidine Scrn Ur Amphetamines Screen U Benzodiazepines Scrn Urine Cocaine Screen U Marijuana (THC) Screen Discharge Plan Discharge Anticipated Discharge Date/Time: 01/21/25 11:03 Patient Disposition: Home, Self-Care Discharge Diagnosis: accidental methadone overdose Referrals: [facility] [Provider Group] - 01/22/25 Referral Note: You did not receive your dose of methadone today, but can receive it tomorrow (01/22). Your clinic and providers are all aware. Physician,Unknown J [Primary Care Provider, Medical] - 1 Week Discharge Medications: Continued fluoxetine 40 mg capsule 40 mg PO DAILY trazodone 50 mg tablet 50 mg PO BEDTIME PRN (Reason: insomnia) atorvastatin 10 mg tablet 10 mg PO BEDTIME prazosin 1 mg capsule 1 mg PO BEDTIME hydroxyzine HCl 50 mg tablet 50 - 100 mg PO QD-QID PRN (Reason: anxiety) oxcarbazepine 300 mg tablet 300 mg PO BID ciclopirox 8 % solution 1 appl topical BID PRN (Reason: Fungal Infection) fluoxetine 20 mg capsule 20 mg PO DAILY aripiprazole 15 mg tablet 15 mg PO DAILY methadone [Methadone Intensol] 10 mg/mL Concentrate 35 mg PO DAILY Discharge Orders: Discharge Order (Routine); Ordered 01/21/25 Ordered By: Roz Merritt Activity on Discharge: As tolerated Stand Alone Forms: Patient Portal Discharge page Print Language: Mongolian Care Plan Goals: see below Health Concerns: Accidental methadone overdose Plan of Treatment: Resume methadone dose tomorrow Assessment: see discharge summary
[2025-01-21 10:21] VITALS: BP 125/66; PULSE 81; RESP 18; TEMP 36.2; O2SAT 96
--- NOTE | 2025-01-21 10:29 | P.PNADD_ITS ---
Subjective Subjective Date of Service: 01/21/25 Reason For Visit: Overdose Interim History: Patient seen in follow up for accidental methadone overdose He is awake, alert, oriented. On RA, walking around comfortably and eating breakfast. Reports feeling good . Inquiring if he would be dosed with methadone today, advised that dose would be held today. Verbalized understanding and states that he does not feel any withdrawal sx or anxiety, which he normally feels in early AM before methadone dosing. No issues overnight Labs and EKG reviewed and no changes Cleared by poison control Review of Systems Acute medical concerns: No Review of Systems Constitutional: Reports as per HPI and Reports no additional constitutional complaints Mental Status Exam Mental Status Exam Patient Appearance: Well Grooomed and Appropriate Patient Orientation: Person, Place, Time and Situation Level of Consciousness: Awake, Appropriate and Alert Patient Behavior: Appropriate and Talkative Affect Description: Calm and Appropriate Speech Pattern: Clear Memory Description: Intact Thought Process: Intact Thought Content: positive for Intact Judgement: Good Diagnostics Vital Signs (24Hr): Vital Signs - 24 hr 01/20/25 11:10 01/20/25 12:00 01/20/25 14:00 Temperature 99.0 F Pulse Rate 86 69 69 Respiratory Rate 16 18 16 Blood Pressure 145/79 H 123/82 121/76 Pulse Oximetry 92 93 94 Oxygen Delivery Method Oxymask Oxymask Oxymask Oxygen Flow Rate 2 2 2 01/20/25 18:43 01/20/25 20:34 01/21/25 01:17 Temperature Pulse Rate 79 76 73 Respiratory Rate 16 16 20 Blood Pressure 124/80 105/75 Pulse Oximetry 93 96 96 Oxygen Delivery Method Oxymask Oxymask Oxymask Oxygen Flow Rate 2 2 2 01/21/25 02:04 01/21/25 02:10 01/21/25 03:53 Temperature 97.2 F 97.4 F Pulse Rate 79 69 Respiratory Rate 16 17 Blood Pressure 108/75 122/62 Pulse Oximetry 95 95 93 Oxygen Delivery Method Oxymask Room Air Oxymask Oxygen Flow Rate 2 2 01/21/25 07:53 01/21/25 10:21 Temperature 97.1 F 97.1 F Pulse Rate 88 81 Respiratory Rate 20 18 Blood Pressure 115/67 125/66 Pulse Oximetry 96 96 Oxygen Delivery Method Oxymask Room Air Oxygen Flow Rate 3 BMI result Body Mass Index 28.8 Labs 01/21/25 06:48 06/20/25 06:43 Labs: Laboratory Results - last 48 hr 01/20/25 01/20/25 01/20/25 08:51 09:04 11:24 WBC 4.7 L RBC 3.83 L Hgb 12.7 L Hct 34.8 L MCV 90.9 MCH 33.2 H MCHC 36.5 H RDW 12.0 Plt Count 227 MPV 9.8 Immature Gran % (Auto) 0.2 Neut % (Auto) 41.4 L Lymph % (Auto) 45.3 H [place] % (Auto) 8.8 Eos % (Auto) 4.1 H Baso % (Auto) 0.2 Lymph # (Auto) 2.1 [place] # (Auto) 0.4 Eos # (Auto) 0.2 Baso # (Auto) 0.0 Abs Immat Gran (auto) 0.01 Absolute Neuts (auto) 1.9 L Absolute Nucleated RBC 0.000 Nucleated RBC % (auto) 0.0 VBG pH 7.32 VBG pCO2 55 VBG pO2 127 VBG HCO3 29 H VBG O2 Saturation 99.0 VBG Base Excess 1.8 Sodium 141 Potassium 4.4 Chloride 107 Carbon Dioxide 28 Anion Gap 10 L BUN 13 Creatinine 0.92 Estim Creat Clear Calc 139.2 Estimated GFR > 60 Random Glucose 108 Calcium 9.3 Phosphorus 4.9 H Magnesium 1.9 Total Bilirubin 0.5 Direct Bilirubin AST 42 H ALT 89 H Alkaline Phosphatase 65 Total Protein 7.0 Albumin 4.4 Salicylates < 5.0 L Urine Opiates Screen Ur Buprenorphine Scrn Ur Oxycodone Screen Urine Methadone Screen Urine Fentanyl Screen Acetaminophen < 3 Ur Barbiturates Screen Ur Phencyclidine Scrn Ur Amphetamines Screen U Benzodiazepines Scrn Urine Cocaine Screen U Marijuana (THC) Screen Ethyl Alcohol < 10 01/20/25 01/20/25 01/20/25 15:27 16:24 21:27 WBC RBC Hgb Hct MCV MCH MCHC RDW Plt Count MPV Immature Gran % (Auto) Neut % (Auto) Lymph % (Auto) [place] % (Auto) Eos % (Auto) Baso % (Auto) Lymph # (Auto) [place] # (Auto) Eos # (Auto) Baso # (Auto) Abs Immat Gran (auto) Absolute Neuts (auto) Absolute Nucleated RBC Nucleated RBC % (auto) VBG pH 7.34 VBG pCO2 60 VBG pO2 66 VBG HCO3 33 H VBG O2 Saturation 90.0 VBG Base Excess 6.1 Sodium Potassium Chloride Carbon Dioxide Anion Gap BUN Creatinine Estim Creat Clear Calc Estimated GFR Random Glucose Calcium Phosphorus Magnesium Total Bilirubin 0.4 Direct Bilirubin 0.1 AST 45 H ALT 93 H Alkaline Phosphatase 66 Total Protein 7.2 Albumin 4.5 Salicylates Urine Opiates Screen Not Detected Ur Buprenorphine Scrn Positive H Ur Oxycodone Screen Not Detected Urine Methadone Screen Positive H Urine Fentanyl Screen Not Detected Acetaminophen Ur Barbiturates Screen Not Detected Ur Phencyclidine Scrn Not Detected Ur Amphetamines Screen Not Detected U Benzodiazepines Scrn Not Detected Urine Cocaine Screen Not Detected U Marijuana (THC) Screen Not Detected Ethyl Alcohol 01/21/25 01/21/25 06:43 06:48 WBC 5.5 RBC 3.63 L Hgb 11.8 L Hct 34.4 L MCV 94.8 MCH 32.5 MCHC 34.3 RDW 11.9 Plt Count 233 MPV 10.2 Immature Gran % (Auto) Neut % (Auto) Lymph % (Auto) [place] % (Auto) Eos % (Auto) Baso % (Auto) Lymph # (Auto) [place] # (Auto) Eos # (Auto) Baso # (Auto) Abs Immat Gran (auto) Absolute Neuts (auto) Absolute Nucleated RBC 0.000 Nucleated RBC % (auto) 0.0 VBG pH VBG pCO2 VBG pO2 VBG HCO3 VBG O2 Saturation VBG Base Excess Sodium 139 Potassium 4.0 Chloride 105 Carbon Dioxide 28 Anion Gap 10 L BUN 10 Creatinine 0.93 Estim Creat Clear Calc 137.3 Estimated GFR > 60 Random Glucose 102 Calcium 9.1 Phosphorus Magnesium Total Bilirubin 0.3 Direct Bilirubin AST 43 H ALT 76 H Alkaline Phosphatase 70 Total Protein 6.3 L Albumin 4.0 Salicylates Urine Opiates Screen Ur Buprenorphine Scrn Ur Oxycodone Screen Urine Methadone Screen Urine Fentanyl Screen Acetaminophen Ur Barbiturates Screen Ur Phencyclidine Scrn Ur Amphetamines Screen U Benzodiazepines Scrn Urine Cocaine Screen U Marijuana (THC) Screen Ethyl Alcohol Imaging Radiology Impressions: ITS Impressions Chest X-Ray 01/20/25 10:26 IMPRESSION: No acute disease Electronically signed by: Kolby Cruz MD 01/20/2025 11:39 AM EDT Medications Medications Current Medications Acetaminophen (Acetaminophen 325 Mg Tablet) 650 mg PO Q6H PRN PRN Reason: Pain, Mild 1-3,fever,headache Last Admin: 01/20/25 16:25 Dose: 650 mg Calcium Carbonate (Calcium Carbonate 750 Mg Tab.Chew) 750 mg PO Q4H PRN PRN Reason: Heartburn Enoxaparin Sodium (Enoxaparin Sodium 40 Mg/0.4 Ml Syringe) 40 mg SUBCUT Q24H [facility] Last Admin: 01/20/25 11:25 Dose: 40 mg Magnesium Hydroxide (Milk Of Magnesia 30 Ml Oral.Susp) 30 ml PO DAILY PRN PRN Reason: Constipation Melatonin (Melatonin 3 Mg Tablet) 6 mg PO BEDTIME PRN PRN Reason: Insomnia Sodium Chloride (0.9 % Sodium Chloride Flush 3 Ml Syringe) 3 ml IVFLUSH QSHIFT [facility] Last Admin: 01/21/25 08:28 Dose: Not Given Allergies Allergies Allergy/AdvReac Type Severity Reaction Status Date / Time No Known Allergies Allergy Verified 01/20/25 07:52 Assessment & Plan Assessment & Plan (1) Opioid use disorder: Status: Acute Code(s): F11.90 - Opioid use, unspecified, uncomplicated Assessment and Plan: * no methadone administered today. methadone dose to resume tomorrow 01/22 * Communicated with [facility]TP providers --clinical information to be faxed over Total time managing care of this patient today __35__ minutes.
--- NOTE | 2025-01-21 11:26 | MHC.CM.PN ---
PT REPORTS HE IS FROM [place] WHERE HE LIVES WITH HIS HE IS HERE FOR SA TREATMENT AND CURRENTLY STAYING AT A [facility] IN [place] PT DENIES ANY COMMUNITY SERVICES OR NEED FOR DME HE COMPLETED A HCP TODAY NAMING HIS S/O, WENDIJANENE ROGERS [phone], HIS AGENT HE SAYS HE HAS A PCP IN [place], BUT DOES NOT KNOW THE NAME/ADDRESS PT WILL DC BACK TO [facility] TODAY VIA [facility] ST[facility]FF
== END 2025-01-21 11:57 | disposition home or self-care (01) | DRG 812 ==
LOC: HO.ED 10:26 → HO.EDOVER 11:20 → HO.IMC 01-21 01:24
PROVIDERS: Internal Medicine; Physician Assistant Medical; Admitting Provider Family Medicine; Emergency Provider Emergency Medicine; Visit Provider Physician Assistant Medical
DX: T40.3X1A Poisoning by methadone, accidental (unintentional), initial encounter (principal); J96.01 Acute respiratory failure with hypoxia; F11.20 Opioid dependence, uncomplicated; Z87.891 Personal history of nicotine dependence; Z79.899 Other long term (current) drug therapy
CPT/HCPCS: 36415; 71045; 80053; 80076; 80143; 80179; 80307; 82803; 83735; 84100; 85025; 85027; 93005; 99222; 99285; J1650; J3475; S9485

== ENCOUNTER → 2025-01-20 08:30 | Outpatient (BNV) | payer OTHER, SELFPAY | PROVIDERS: Admitting Provider Family Medicine; Emergency Provider Emergency Medicine; Visit Provider Internal Medicine Cardiovascular Disease | DX: R94.31 Abnormal electrocardiogram [ECG] [EKG] (principal); Z13.6 Encounter for screening for cardiovascular disorders | CPT/HCPCS: 93010 ==

== ENCOUNTER → 2025-01-20 10:26 | Outpatient (BNV) | payer MEDICAID, SELFPAY | PROVIDERS: Admitting Provider Family Medicine; Emergency Provider Emergency Medicine; Visit Provider Radiology Diagnostic Radiology | DX: T50.901A Poisoning by unspecified drugs, medicaments and biological substances, accidental (unintentional), initial encounter (principal); R09.02 Hypoxemia | CPT/HCPCS: 71045 ==

== ENCOUNTER 2025-01-20 10:56 | Outpatient (BNV) | payer OTHER, SELFPAY | END 2025-01-21 01:59 | PROVIDERS: Admitting Provider Family Medicine; Emergency Provider Emergency Medicine; Visit Provider Internal Medicine Cardiovascular Disease | DX: R94.31 Abnormal electrocardiogram [ECG] [EKG] (principal); Z13.6 Encounter for screening for cardiovascular disorders; T40.3X1A Poisoning by methadone, accidental (unintentional), initial encounter | CPT/HCPCS: 93010 ==

== ENCOUNTER → 2025-01-20 10:56 | Outpatient (BNV) | payer OTHER, SELFPAY | PROVIDERS: Admitting Provider Family Medicine; Emergency Provider Emergency Medicine; Visit Provider Family Medicine | DX: F11.90 Opioid use, unspecified, uncomplicated (principal); T40.3X1A Poisoning by methadone, accidental (unintentional), initial encounter | CPT/HCPCS: 99239 ==

== ENCOUNTER → 2025-01-20 10:56 | Outpatient (BNV) | payer OTHER, SELFPAY | PROVIDERS: Admitting Provider Family Medicine; Emergency Provider Emergency Medicine; Visit Provider Nurse Practitioner Psychiatric/Mental Health | DX: F11.90 Opioid use, unspecified, uncomplicated (principal) | CPT/HCPCS: 99232 ==

== ENCOUNTER 2025-01-24 19:32 | Inpatient (IN) | payer OTHER, SELFPAY ==
[2025-01-24] VITALS (7 sets, daily range): BP systolic 99–122; BP diastolic 60–70; PULSE 73–86; RESP 12–16; TEMP 36.9–37.1; O2SAT 87–97; BMI 29.0
--- NOTE | ~2025-01-24 | CT_ITS ---
CLINICAL HISTORY: dyspnea --- Additional Notes or Special Instructions: possible aspiration pneumonitis CT chest without contrast Comparison: Chest radiographs most recently on 01/24/2025 Findings: There are scattered ground-glass and nodular densities present mainly throughout right lung. No pleural effusion. No pneumothorax. Central airways are patent. Normal heart size. No pericardial effusion. No coronary artery calcifications. Normal caliber thoracic aorta. Unremarkable esophagus. No definite pathologically enlarged lymph nodes. No acute findings within visualized lower neck. Visualized upper abdomen is unremarkable. No acute osseous abnormality. No lytic or sclerotic osseous lesions. Impression: 1. Scattered ground-glass and nodular densities throughout right lung concerning for developing multifocal pneumonia. Recommend repeat imaging after treatment and resolution of current acute symptoms to ensure complete clearing of these findings. 2. Additional findings as above. This document has been electronically signed by: De Calvillo MD on 01/24/2025 22:27:11
--- NOTE | ~2025-01-24 | XR_ITS ---
CLINICAL HISTORY: hypoxia 2 view chest x-ray Comparison: CR/SR - XR CHEST 1V - 01/20/25 11:26 EDT Findings: Heart size is normal. No consolidation, pleural effusion or pneumothorax. No acute fracture. IMPRESSION: 1. No acute findings. This document has been electronically signed by: Shelli Capone MD on 01/24/2025 21:30:48
--- NOTE | 2025-01-24 19:42 | ECG_ITS ---
Test Reason : SHORTNESS OF BREATH Blood Pressure : */* mmHG Vent. Rate : 76 BPM Atrial Rate : 76 BPM P-R Int : 152 ms QRS Dur : 90 ms QT Int : 354 ms P-R-T Axes : 45 10 42 degrees QTcB Int : 398 ms Normal sinus rhythm Nonspecific T wave abnormality Abnormal ECG When compared with ECG of 21-Jan-2025 06:10, No significant change was found Referred By: Generic ED Physician Electronically Signed By: JESICA ESTRLELA
[2025-01-24 19:55] LABS: MANUAL DIFF FLAG NO
[2025-01-24 19:56] LABS: Basophils Percent Auto 0.3 % (0-2); Eosinophils Absolute Auto 0.2 X10*3/uL (0.0-0.4); Eosinophils Percent Auto 3.5 % (0-4); Hemoglobin 11.8 g/dl (14.0-18.0); Imm Gran Abs Auto 0.01 X10*3/uL (0.00-0.03); Imm Gran Pct Auto 0.2 % (0.0-0.4); Lymphocytes Absolute Auto 2.4 X10*3/uL (1.2-4.9); Lymphocytes Percent Auto 38.2 % (20-40); Mean Corpuscular HGB Conc 35.8 g/dl (31.0-36.0); Mean Corpuscular Hemoglobin 32.6 pg (27.0-33.0); Mean Corpuscular Volume 91.2 fL (80.0-98.0); Mean Platelet Volume 9.5 fL (9.4-12.4); Monocytes Absolute Auto 0.5 X10*3/uL (0.1-1.2); Neutrophils Absolute Auto 3.2 x10*3/uL (2.0-8.3); Neutrophils Percent Auto 49.8 % (45-73); Platelet Count 233 X10*3/uL (160-400); Red Blood Count 3.62 X10*6/uL (4.60-5.80); Red Cell Distribution Width 11.8 % (11.0-16.0); White Blood Count 6.3 X10*3/uL (4.8-10.8)
[2025-01-24 20:12] LABS: Anion Gap 11 (12-20); Blood Urea Nitrogen 14 mg/dL (9-16); Calcium 9.3 mg/dL (8.4-10.2); Carbon Dioxide 27 mmol/L (22-29); Chloride 108 mmol/L (96-108); Creatinine Clr Calc Pharmacy 115.4; Estimated Glomerular Filt Rate > 60; Glucose Random 118 mg/dL (60-115); Potassium 4.3 mmol/L (3.3-5.1); Sodium 142 mmol/L (135-145)
[2025-01-24 20:23] LABS: Troponin-I High Sensitivity < 2.7 ng/L (<3.5-35.0)
--- NOTE | 2025-01-24 20:31 | ED.GENADULT ---
HPI - General Adult General Chief complaint: Dyspnea Stated complaint: increased work of breathing Time Seen by Provider: 01/24/25 19:49 Source: patient, RN notes reviewed and old records reviewed Mode of arrival: EMS Limitations: no limitations History of Present Illness ED Provider: Gwendolyn HPI narrative: 34-year-old male presents for evaluation of shortness of breath. patient presents from a detox facility. He reports increasing shortness of breath and sweating for the last 3 days. He was admitted here on 01/20/2025 due to an accidental methadone overdose. He was supposed to be receiving methadone 35 mg and accidentally received methadone 150 mg the patient was admitted overnight and ultimately discharged with the following day. the patient states increasing shortness of breath that is worse with walking. Denies any coughing. He reports fevers, chills, body aches he reports this started while he was admitted Related Data Home Medications ?Medication ?Instructions ?Recorded ?Confirmed aripiprazole 15 mg tablet 15 mg PO DAILY 01/20/25 01/20/25 atorvastatin 10 mg tablet 10 mg PO BEDTIME hyperlipidemia 01/20/25 01/20/25 ciclopirox 8 % topical solution 1 appl topical BID PRN Fungal 01/20/25 01/20/25 Infection fluoxetine 20 mg capsule 20 mg PO DAILY 01/20/25 01/20/25 fluoxetine 40 mg capsule 40 mg PO DAILY 01/20/25 01/20/25 hydroxyzine HCl 50 mg tablet 50 - 100 mg PO QD-QID PRN anxiety 01/20/25 01/20/25 methadone 10 mg/mL oral 35 mg PO DAILY 01/20/25 concentrate (Methadone Intensol) oxcarbazepine 300 mg tablet 300 mg PO BID 01/20/25 01/20/25 prazosin 1 mg capsule 1 mg PO BEDTIME 01/20/25 01/20/25 trazodone 50 mg tablet 50 mg PO BEDTIME PRN insomnia 01/20/25 01/20/25 Allergies Allergy/AdvReac Type Severity Reaction Status Date / Time No Known Allergies Allergy Verified 01/24/25 19:41 Review of Systems Constitutional: Constitutional: Reports body ache(s), Reports chills, Reports fever(s) and Reports headache(s) Eyes: Eyes: Denies blurry vision ENT: Denies dry mouth, Denies ear discharge and Reports headache(s) Cardiovascular: Cardiovascular: Reports chest pain, Reports dyspnea and Reports dyspnea on exertion Respiratory: Respiratory: Denies cough, Reports dyspnea and Reports dyspnea on exertion Gastrointestinal: Gastrointestinal: Denies abdominal pain, Denies nausea and Denies vomiting Musculoskeletal: Musculoskeletal: Denies back pain Integumentary/Breasts: Skin/Breast: Denies rash Neurologic: Reports headache(s) Psychiatric: Psychiatric: Denies anxiety PMFSH Past Medical History Medical History (Updated 01/24/25 @ 22:49 by Ramon Snow) Opiate dependence Surgical History No pertinent past surgical history Social History Social History (Updated 01/20/25 @ 11:08 by Wilberto Zeng MD) Household Members: Other Household Members Other:: current program with other participants, Housing: Other Housing Other:: sobriety program house. Do you presently have visiting nurse or other home services: No Alcohol intake: former Comment: November 2024 Patient Tobacco Use Status: Former Tobacco user Tobacco use type: Cigarette Smoked in Last 30 Days: No Use of substances other than those prescribed or required for medical reasons: No Advance Directives: Yes Advance Directives on File: Yes Advance Directives Date on File: 01/24/25 service: No Physical Exam ED Vital Signs: Vital Signs - 24 hr 01/24/25 19:40 01/24/25 19:49 01/24/25 20:44 Temperature 98.7 F 98.7 F Pulse Rate 86 86 75 Respiratory Rate 16 16 12 Blood Pressure 122/67 122/67 122/67 Pulse Oximetry 94 94 94 Oxygen Delivery Method Room Air Room Air Nasal Cannula Oxygen Flow Rate 2 01/24/25 21:26 01/24/25 22:18 01/24/25 22:31 Temperature 98.4 F 98.5 F Pulse Rate 80 Respiratory Rate 15 Blood Pressure 99/60 Pulse Oximetry 87 L 91 L Oxygen Delivery Method Room Air Nasal Cannula Oxygen Flow Rate 2 BMI result Body Mass Index 29.0 Const General: cooperative, healthy appearing, comfortable, alert, awake and diaphoretic Nutritional Appearance: well nourished Orientation/consciousness: patient oriented x3 HENMT Head: Yes normocephalic and Yes atraumatic Eyes Eyelids: Yes eyelids normal Conjunctivae: conjunctivae normal Sclerae: sclerae normal Corneas: corneas normal Pupils: Equal, round and reactive pupils present EOM: EOMs intact bilaterally Neck Neck: Yes full ROM Resp Effort & Inspection: normal respiratory effort, able to speak in complete sentences, no audible wheezes and not labored Auscultation: clear to auscultation bilaterally Cardio Other: no lower extremity edema Rate: regular rate Rhythm: regular rhythm GI Inspection: No distended Palpation (GI): Soft to palpation, not firm, nontender, no guarding and not rigid Skin General skin exam: no rashes or lesions noted and elasticity normal Neuro General: patient oriented x3 Cranial nerves: Yes Equal, round and reactive pupils present and Yes Bilaterally intact EOM present Cognition (Neuro): normal cognition Extrem Other: Moving all extremities well without any obvious deformities Course Reevaluation(s) Reevaluation #1: the patient did desat to 86% while I was talking to him on room air, he was placed on nasal cannula. A did a CT scan of the chest without contrast which shows developing multifocal pneumonia. The patient has a negative D-dimer. Given his recent opiate overdose he was covered with a metronidazole in addition to typical community-acquired pneumonia coverage. We will discuss with the hospitalist for admission of multifocal pneumonia likely due to aspiration Time: 22:46 Medications Administered Generic Name Dose Route Start Last Admin Trade Name Freq PRN Reason Stop Dose Admin Sodium Chloride 1,000 mls @ 999 mls/hr 01/24/25 22:30 01/24/25 22:30 Ns IV 01/24/25 23:30 999 mls/hr .Q1H1M RL Administration Procedures Procedure Narrative Procedure Narrative: EMERGENCY ULTRASOUND INTERPRETATION-Limited Echocardiography [This study was ordered, performed, and interpreted by myself. The study reveals: Impression: NORMAL LV FUNCTION, NO RV DYSFUNCTION, NO PERICARDIAL EFFUSION] [Emergent Cardiac for Indication: Views Used: PLAX, PSSA, A4, SX, IVC Pericardial Effusion/Tamponade Findings: NONE RV Dilation (> LV diam in 4ch apical): NONE Global LV Fxn: NORMAL IVC Dilation and Resp Variation: NORMAL Performed by: MD Miguel Images were stored CPT:[id number]] Medical Decision Making Medical Decision Making MDM Narrative: 34-year-old male presents for evaluation of shortness of breath and diaphoresis. He is afebrile but is diaphoretic on exam. Lungs are clear to auscultation. Given his recent accidental overdose I have a high suspicion for aspiration pneumonitis. Chest x-ray is pending. He is hypoxic to 88% with a good plus while sitting up and talking to me. He is wide awake. With deep breathing his oxygen improves to 96% on room air. He has no lower extremity edema no history of CHF. EKG is nonischemic, he does not complain of significant chest pain. I do not suspect an MA as the cause of his symptoms as this should not cause hypoxia and does not complain of significant chest pain. In his troponin is also negative. A D-dimer was ordered to help rule out PE. Differential Diagnosis Differential Diagnoses: The differential diagnosis associated with the presentation includes Aspiration pneumonia Aspiration pneumonitis CHF PE MA less likely Admission/Observation Consideration of admission/observation: Escalation of care including admission/observation considered Lab Data MDM Lab Attestation statement: I reviewed the patient's lab results. no leukocytosis. The patient does have a mild normocytic anemia that is consistent with his labs from last week. No significant electrolyte abnormalities. 01/24/25 19:48 01/24/25 19:48 Labs: Lab Results 01/24/25 01/24/25 01/24/25 Range/Units 19:48 21:14 21:15 WBC 6.3 (4.8-10.8) X10*3/uL RBC 3.62 L (4.60-5.80) X10*6/uL Hgb 11.8 L (14.0-18.0) g/dl Hct 33.0 L (42.0-52.0) % MCV 91.2 (80.0-98.0) fL MCH 32.6 (27.0-33.0) pg MCHC 35.8 (31.0-36.0) g/dl RDW 11.8 (11.0-16.0) % Plt Count 233 (160-400) X10*3/uL MPV 9.5 (9.4-12.4) fL Immature Gran % (Auto) 0.2 (0.0-0.4) % Neut % (Auto) 49.8 (45-73) % Lymph % (Auto) 38.2 (20-40) % [place] % (Auto) 8.0 (2-11) % Eos % (Auto) 3.5 (0-4) % Baso % (Auto) 0.3 (0-2) % Lymph # (Auto) 2.4 (1.2-4.9) X10*3/uL [place] # (Auto) 0.5 (0.1-1.2) X10*3/uL Eos # (Auto) 0.2 (0.0-0.4) X10*3/uL Baso # (Auto) 0.0 (0.0-0.2) X10*3/uL Abs Immat Gran (auto) 0.01 (0.00-0.03) X10*3/uL Absolute Neuts (auto) 3.2 (2.0-8.3) x10*3/uL Absolute Nucleated RBC 0.000 (0.0-0.012) X10*3/uL Nucleated RBC % (auto) 0.0 (0.0-0.2) /100WBC D-Dimer High Sensitivty < 150 NG/ML Sodium 142 (135-145) mmol/L Potassium 4.3 (3.3-5.1) mmol/L Chloride 108 (96-108) mmol/L Carbon Dioxide 27 (22-29) mmol/L Anion Gap 11 L (12-20) BUN 14 (9-16) mg/dL Creatinine 1.11 (0.5-1.4) mg/dL Estim Creat Clear Calc 115.4 Estimated GFR > 60 Random Glucose 118 H (60-115) mg/dL Calcium 9.3 (8.4-10.2) mg/dL Troponin I High Sens < 2.7 (<3.5-35.0) ng/L B-Natriuretic Peptide < 10 (<100) pg/mL Urine Color Urine Appearance Urine pH (5.0-9.0) Ur Specific [place] (1.005-1.025) Urine Protein (Neg-Trace) mg/dL Urine Glucose (UA) (Negative) mg/dL Urine Ketones (Negative) mg/dL Urine Blood (Negative) Urine Nitrite (Negative) Ur Leukocyte Esterase (Negative) Influenza Type A (PCR) NEGATIVE (Negative) Influenza Type B (PCR) NEGATIVE (Negative) RSV RNA Qual (PCR) NEGATIVE (Negative) SARS-CoV-2 RNA (RT-PCR) NEGATIVE (Negative) 01/24/25 Range/Units 21:25 WBC (4.8-10.8) X10*3/uL RBC (4.60-5.80) X10*6/uL Hgb (14.0-18.0) g/dl Hct (42.0-52.0) % MCV (80.0-98.0) fL MCH (27.0-33.0) pg MCHC (31.0-36.0) g/dl RDW (11.0-16.0) % Plt Count (160-400) X10*3/uL MPV (9.4-12.4) fL Immature Gran % (Auto) (0.0-0.4) % Neut % (Auto) (45-73) % Lymph % (Auto) (20-40) % [place] % (Auto) (2-11) % Eos % (Auto) (0-4) % Baso % (Auto) (0-2) % Lymph # (Auto) (1.2-4.9) X10*3/uL [place] # (Auto) (0.1-1.2) X10*3/uL Eos # (Auto) (0.0-0.4) X10*3/uL Baso # (Auto) (0.0-0.2) X10*3/uL Abs Immat Gran (auto) (0.00-0.03) X10*3/uL Absolute Neuts (auto) (2.0-8.3) x10*3/uL Absolute Nucleated RBC (0.0-0.012) X10*3/uL Nucleated RBC % (auto) (0.0-0.2) /100WBC D-Dimer High Sensitivty NG/ML Sodium (135-145) mmol/L Potassium (3.3-5.1) mmol/L Chloride (96-108) mmol/L Carbon Dioxide (22-29) mmol/L Anion Gap (12-20) BUN (9-16) mg/dL Creatinine (0.5-1.4) mg/dL Estim Creat Clear Calc Estimated GFR Random Glucose (60-115) mg/dL Calcium (8.4-10.2) mg/dL Troponin I High Sens (<3.5-35.0) ng/L B-Natriuretic Peptide (<100) pg/mL Urine Color Yellow Urine Appearance Clear Urine pH 7.0 (5.0-9.0) Ur Specific [place] 1.020 (1.005-1.025) Urine Protein Negative (Neg-Trace) mg/dL Urine Glucose (UA) Negative (Negative) mg/dL Urine Ketones Trace (Negative) mg/dL Urine Blood Negative (Negative) Urine Nitrite Negative (Negative) Ur Leukocyte Esterase Negative (Negative) Influenza Type A (PCR) (Negative) Influenza Type B (PCR) (Negative) RSV RNA Qual (PCR) (Negative) SARS-CoV-2 RNA (RT-PCR) (Negative) Discharge Plan Discharge Clinical Impression: Multifocal pneumonia Patient Disposition: Admitted As Inpatient Print Language: Kazakh
--- NOTE | 2025-01-24 20:45 | PC.NURSE ---
Patient BIBA. skin pale, warm, diaphoretic. NSR via tele. c/o SOB w/ low O2 sats, O2 2lpm applied via NC. left lung lopez clear throughout, right side dim. patient also c/o lower back pain and increased urination, provider aware. IV established, awaiting results of blood work and chest x ray.
[2025-01-24 20:47] LABS: B Type Natriuretic Peptide < 10 pg/mL (<100)
[2025-01-24 21:31] LABS: D Dimer High Sensitivity < 150 NG/ML
[2025-01-24 21:33] LABS: Appearance Urine Clear; Color Urine Yellow; Glucose Urine UA Negative (Negative); Leukocyte Esterase Urine Negative (Negative); Nitrite Urine Negative (Negative); Urine Blood Negative (Negative); Urine Ketones Trace mg/dL (Negative); Urine Protein Negative (Neg-Trace)
[2025-01-24 21:57] LABS: Influenza A PCR NEGATIVE (Negative); Influenza B PCR NEGATIVE (Negative); Resp Syncy Virus RNA Qual PCR NEGATIVE (Negative); SARS COV2 PCR INHOUSE NEGATIVE (Negative)
--- NOTE | 2025-01-24 22:10 | PC.NURSE ---
patient resting on stretcher w/ eyes closed. skin pwd, no longer diaphoretic at this time. NSR via tele. states that he is feeling a little better at this time, still feeling SOB but states it isnt as bad. remains on 2lpm via NC
[2025-01-24] MEDS: 0.9 % Sodium Chloride 1,000 ML 999 ML IV (22:30)
[2025-01-24] MEDS: Azithromycin 500 MG TABLET PO (22:52)
[2025-01-24] MEDS: cefTRIAXone sodium 1 GM VIAL IVPUSH (22:52)
[2025-01-24] MEDS: metroNIDAZOLE/NS 500 MG/100 ML PIGGYBACK 100 MG IV (22:52)
[2025-01-24 23:20] LABS: Lactic Acid 0.7 mmol/L (0.5-2.0)
[2025-01-25] VITALS (8 sets, daily range): BP systolic 112–136; BP diastolic 61–92; PULSE 65–79; RESP 11–18; TEMP 36.1–37.1; O2SAT 95–99
[2025-01-25] MEDS: Enoxaparin Sodium 40 MG/0.4 ML SYRINGE SUBCUT (01:04)
[2025-01-25] MEDS: Ampicillin Sodium/Sulbactam Na 3 GM in 0.9 % Sodium Chloride 100 ML IV ×4 (01:05→18:32)
--- NOTE | 2025-01-25 02:37 | PM.IMHP ---
History of Present Illness Date of Service: 01/25/25 Chief Complaint: dyspnea This has a 33-year-old male with pertinent history of mood disorder, opiate use disorder on methadon who presents to the emergency department for evaluation of dyspnea. Of note, patient was admitted on 01/20 with accidental opioid overdose and discharged on 01/21. Patient states he has been having dyspnea for the last 2-3 days. It is worse with exertion. No orthopnea or PND. Minimal cough. Patient thinks the inciting factor was accidental methadone overdose. No chest pain or palpitations. No fever, chills, nausea, vomiting, abdominal pain, changes in urinary or bowel habits. In the emergency department, imaging with multifocal pneumonia. Also patient was found to be hypoxemic and requiring 3 L supplemental oxygen in the ER Review of Systems Constitutional: Constitutional: Reports fatigue Cardiovascular: Cardiovascular: Reports dyspnea and Reports dyspnea on exertion Respiratory: Respiratory: Reports dyspnea and Reports dyspnea on exertion Gastrointestinal: Gastrointestinal: Reports no additional gastrointestinal complaints Genitourinary: Genitourinary: Reports no additional male genitourinary complaints Endocrine: Endocrine: Reports fatigue [facility] Medical History Opiate dependence Pertinent family history: No family history of early CAD Surgical History No pertinent past surgical history Social History Household Members: Other Household Members Other:: current program with other participants, Housing: Other Housing Other:: sobriety program house. Do you presently have visiting nurse or other home services: No Alcohol intake: former Comment: November 2024 Patient Tobacco Use Status: Former Tobacco user Tobacco use type: Cigarette Smoked in Last 30 Days: No Use of substances other than those prescribed or required for medical reasons: No Advance Directives: Yes Advance Directives on File: Yes Advance Directives Date on File: 01/24/25 service: No Meds Allergies Allergy/AdvReac Type Severity Reaction Status Date / Time No Known Allergies Allergy Verified 01/24/25 19:41 Active Medications: Current Medications Acetaminophen (Acetaminophen 325 Mg Tablet) 650 mg PO Q6H PRN PRN Reason: Pain, Mild 1-3,fever,headache Calcium Carbonate (Calcium Carbonate 750 Mg Tab.Chew) 750 mg PO Q4H PRN PRN Reason: Heartburn Enoxaparin Sodium (Enoxaparin Sodium 40 Mg/0.4 Ml Syringe) 40 mg SUBCUT Q24H [facility] Last Admin: 01/25/25 01:04 Dose: 40 mg Ampicillin Sodium/Sulbactam (Sodium 3 gm/ Sodium Chloride) 100 mls @ 200 mls/hr IV Q6H [facility] Last Infusion: 01/25/25 01:49 Dose: Infused Magnesium Hydroxide (Milk Of Magnesia 30 Ml Oral.Susp) 30 ml PO DAILY PRN PRN Reason: Constipation Melatonin (Melatonin 3 Mg Tablet) 6 mg PO BEDTIME PRN PRN Reason: Insomnia Ondansetron HCl (Ondansetron Hcl 4 Mg/2 Ml Vial) 4 mg IVPUSH Q8H PRN PRN Reason: Nausea and Vomiting Sodium Chloride (0.9 % Sodium Chloride Flush 3 Ml Syringe) 3 ml IVFLUSH QSHIFT [facility] Home Medications ?Medication ?Instructions ?Recorded ?Confirmed ?Last Taken ?Type aripiprazole 15 mg tablet 15 mg PO DAILY 01/20/25 01/20/25 01/20/25 History atorvastatin 10 mg tablet 10 mg PO BEDTIME hyperlipidemia 01/20/25 01/20/25 01/19/25 History ciclopirox 8 % topical solution 1 appl topical BID PRN Fungal 01/20/25 01/20/25 Unknown History Infection fluoxetine 20 mg capsule 20 mg PO DAILY 01/20/25 01/20/25 01/20/25 History fluoxetine 40 mg capsule 40 mg PO DAILY 01/20/25 01/20/25 01/20/25 History hydroxyzine HCl 50 mg tablet 50 - 100 mg PO QD-QID PRN anxiety 01/20/25 01/20/25 Unknown History methadone 10 mg/mL oral 35 mg PO DAILY 01/20/25 Unknown History concentrate (Methadone Intensol) oxcarbazepine 300 mg tablet 300 mg PO BID 01/20/25 01/20/25 01/20/25 History prazosin 1 mg capsule 1 mg PO BEDTIME 01/20/25 01/20/25 01/19/25 History trazodone 50 mg tablet 50 mg PO BEDTIME PRN insomnia 01/20/25 01/20/25 Unknown History Physical Exam Vital Signs and Narrative: Vital Signs: Last Vital Signs Temp 98.7 F 01/25/25 01:03 Pulse 66 01/25/25 01:03 Resp 11 L 01/25/25 01:03 BP 127/71 01/25/25 01:03 Pulse Ox 97 01/25/25 01:03 O2 Del Method Nasal Cannula 01/25/25 01:03 O2 Flow Rate 3 01/25/25 01:03 BMI result Body Mass Index 29.0 Middle-aged male lying in bed in mild distress on supplemental oxygen Neck supple, no JVD Regular rate and rhythm, S1-S2 heard Crackles heard, no wheezing Abdomen soft nontender, no guarding, no rigidity Patient is awake, alert and oriented to self, place, time and person ; no focal motor deficit Psych: Normal mood No pedal edema Results Labs 01/24/25 19:48 01/24/25 19:48 Labs: Laboratory Results - last 24 hr 01/24/25 01/24/25 01/24/25 19:48 21:14 21:15 MCV 91.2 MCH 32.6 MCHC 35.8 RDW 11.8 Plt Count 233 MPV 9.5 Immature Gran % (Auto) 0.2 Neut % (Auto) 49.8 Lymph % (Auto) 38.2 [place] % (Auto) 8.0 Eos % (Auto) 3.5 Baso % (Auto) 0.3 Lymph # (Auto) 2.4 [place] # (Auto) 0.5 Eos # (Auto) 0.2 Baso # (Auto) 0.0 Abs Immat Gran (auto) 0.01 Absolute Neuts (auto) 3.2 Absolute Nucleated RBC 0.000 Nucleated RBC % (auto) 0.0 D-Dimer High Sensitivty < 150 Anion Gap 11 L Estim Creat Clear Calc 115.4 Estimated GFR > 60 Random Glucose 118 H Lactic Acid Calcium 9.3 Troponin I High Sens < 2.7 B-Natriuretic Peptide < 10 Urine Color Urine Appearance Urine pH Ur Specific [place] Urine Protein Urine Glucose (UA) Urine Ketones Urine Blood Urine Nitrite Ur Leukocyte Esterase Influenza Type A (PCR) NEGATIVE Influenza Type B (PCR) NEGATIVE RSV RNA Qual (PCR) NEGATIVE SARS-CoV-2 RNA (RT-PCR) NEGATIVE 01/24/25 01/24/25 21:25 22:50 MCV MCH MCHC RDW Plt Count MPV Immature Gran % (Auto) Neut % (Auto) Lymph % (Auto) [place] % (Auto) Eos % (Auto) Baso % (Auto) Lymph # (Auto) [place] # (Auto) Eos # (Auto) Baso # (Auto) Abs Immat Gran (auto) Absolute Neuts (auto) Absolute Nucleated RBC Nucleated RBC % (auto) D-Dimer High Sensitivty Anion Gap Estim Creat Clear Calc Estimated GFR Random Glucose Lactic Acid 0.7 Calcium Troponin I High Sens B-Natriuretic Peptide Urine Color Yellow Urine Appearance Clear Urine pH 7.0 Ur Specific [place] 1.020 Urine Protein Negative Urine Glucose (UA) Negative Urine Ketones Trace Urine Blood Negative Urine Nitrite Negative Ur Leukocyte Esterase Negative Influenza Type A (PCR) Influenza Type B (PCR) RSV RNA Qual (PCR) SARS-CoV-2 RNA (RT-PCR) Assessment and Plan (1) Acute hypoxemic respiratory failure: Status: Acute (2) Multifocal pneumonia: Status: Acute Plan This has a 33-year-old male with pertinent history of mood disorder, opiate use disorder on methadon who presents to the emergency department for evaluation of dyspnea. #. Acute hypoxemic respiratory failure secondary to multifocal pneumonia: Concern for aspiration in the setting of accidental opiate overdose. Will admit patient with IV Unasyn and supplemental oxygen. Monitor oxygen saturation and wean as tolerated. No sepsis. Speech eval #. Mood disorder: Continue home mood stabilizers once no longer NPO #. Opioid use disorder: On methadone Med rec pending DVT prophylaxis: Lovenox Full code Admit as inpatient and will require two night minimum hospital stay for supplemental oxygen, IV antibiotics (as above), which is not possible in a lesser acute setting. Quality Stroke Does the patient have a stroke diagnosis?: No VTE Prior VTE?: No VTE Risk Level:: Medical - moderate - high VTE Device Contraindication: Treatment Not Indicated VTE Drug Contraindication: N/A - Med Ordered
[2025-01-25 04:16] LABS: MANUAL DIFF FLAG NO
[2025-01-25 04:18] LABS: Basophils Percent Auto 0.5 % (0-2); Eosinophils Absolute Auto 0.2 X10*3/uL (0.0-0.4); Hematocrit 33.9 % (42.0-52.0); Hemoglobin 11.6 g/dl (14.0-18.0); Imm Gran Abs Auto 0.01 X10*3/uL (0.00-0.03); Imm Gran Pct Auto 0.2 % (0.0-0.4); Lymphocytes Absolute Auto 2.4 X10*3/uL (1.2-4.9); Lymphocytes Percent Auto 43.5 % (20-40); Mean Corpuscular HGB Conc 34.2 g/dl (31.0-36.0); Mean Corpuscular Hemoglobin 32.1 pg (27.0-33.0); Mean Corpuscular Volume 93.9 fL (80.0-98.0); Mean Platelet Volume 9.3 fL (9.4-12.4); Monocytes Absolute Auto 0.6 X10*3/uL (0.1-1.2); Monocytes Percent Auto 11.6 % (2-11); Neutrophils Absolute Auto 2.2 x10*3/uL (2.0-8.3); Neutrophils Percent Auto 40.2 % (45-73); Platelet Count 216 X10*3/uL (160-400); Red Blood Count 3.61 X10*6/uL (4.60-5.80); Red Cell Distribution Width 11.9 % (11.0-16.0); White Blood Count 5.5 X10*3/uL (4.8-10.8)
[2025-01-25 04:31] LABS: Anion Gap 10 (12-20); Blood Urea Nitrogen 13 mg/dL (9-16); Calcium 9.1 mg/dL (8.4-10.2); Carbon Dioxide 28 mmol/L (22-29); Chloride 108 mmol/L (96-108); Creatinine Clr Calc Pharmacy 139.2; Estimated Glomerular Filt Rate > 60; Glucose Random 93 mg/dL (60-115); Potassium 4.4 mmol/L (3.3-5.1); Sodium 142 mmol/L (135-145)
--- NOTE | 2025-01-25 08:44 | PHA.MEDREC ---
Addendum entered by Dhruv Flores [facility] 01/25/25 08:53: MED REC CHECKED BY [facility] Original Note: Pharmacy Consult ? Medication Reconciliation Pharmacy has completed the medication reconciliation. Spoke to patient to confirm med list. Patient states he was recently discharged and there are no changes to his medications other then and increase on his Methadone was 35 mg daily , however the clinic in [place] upped his dosage.
[2025-01-25] MEDS: 0.9 % Sodium Chloride Flush 3 ML SYRINGE IVFLUSH (09:02)
--- NOTE | 2025-01-25 09:22 | PC.NURSE ---
Addendum entered by Jackie Gillespie RN 01/25/25 11:26: 11:22 called back the clinic [phone] to verify dose and they don't have this pt on file . Pt had provided me this info . will continue to try and verify clinic and dose Original Note: Called methadone clinic to verify dose [phone] but only got a voicemail left a message for call back .
--- NOTE | 2025-01-25 10:24 | MHC.SL.SWA ---
Risk of Aspiration Due to: None Dysphasia Diet Status: UPGRADE Liquid Consistency and Strategies for Safe Swallow: Liquid Intake Recommendation: Thin Solid Food Consistency: Dietary Recommendations: Regular Oral Medication Intake: Whole with Liquid Please contact the pharmacy regarding appropriate crushable or liquid drug formulations that are available whenever modified delivery is recommended. Compensatory Strategies and Precautions to be Taken for Safe Swallow: Sit upright Supervision While Eating and Drinking for Safe Swallow: None Needed Recommendation for Speech: NA:Typical Evaluation Comment: All aspects of pt's clinical swallow evaluation WFL. [employer] tx not recommended at this time. Per EMR, question of aspiration pneumonia is in setting of accidental opiate overdose. No standout risk factors for aspiration/dysphagia per chart review. Likely standalone event secondary to OD. No reported concerns with swallowing from pt. Pt to be d/c from [employer] tx. Should further concerns arise from medical team or pt, please re-refer. Frequency/Duration: d/c Mri Technologist Clinican/Clinical Fellow: No Supervisory Statement: I have reviewed and agree with the student/clinical fellow's documentation: N/A Speech Language Pathologist: Eva Kearns M.A., [facility]-[employer]
--- NOTE | 2025-01-25 10:45 | P.PNIM_ITS ---
Subjective Subjective Date of Service: 01/25/25 Interval History: Follow-up aspiration pneumonia secondary to recent overdose Patient is still endorsing shortness of breath and mild chest pain with deep inspriation no nausea, vomting, or LE edema Review of Systems Review of Systems: Yes all other systems are reviewed and are negative Constitutional Constitutional: Denies body ache(s), Denies chills, Denies fever(s) and Denies headache(s) Eyes Eyes: Denies change in vision ENT Ears, Nose, Mouth, and Throat: Denies headache(s), Denies nasal congestion and Denies sore throat Cardiovascular Cardiovascular: Reports as per HPI Gastrointestinal Gastrointestinal: Denies abdominal pain, Denies diarrhea, Denies nausea and Denies vomiting Integumentary/Breasts Skin/Breast: Denies rash Neurologic Neurologic: Denies confusion and Denies headache(s) Psychiatric Psychiatric: Denies confusion Physical Exam 2 Vital Signs: Vital Signs: Last Vital Signs Temp 97.0 F 01/25/25 09:18 Pulse 65 01/25/25 09:18 Resp 16 01/25/25 09:18 BP 118/71 01/25/25 09:18 Pulse Ox 97 01/25/25 09:18 O2 Del Method Nasal Cannula 01/25/25 09:18 O2 Flow Rate 2.0 01/25/25 09:18 BMI result Body Mass Index 30.0 General: AOx3, no acute distress Resp: CTA bilaterally, no wheezing or rhonchi CVS: S1, S2, RRR GI: +BS, NT, no distention Skin: Warm, dry Neuro: Cranial nerves II-XII grossly intact bilaterally. Motor grossly intact bilaterally Extremities: No LE edema Psych: Appropriate affect Const: General: No confusion Orientation/consciousness: No confusion Neuro: General: No confusion Objective Data Active Medications Acetaminophen (Acetaminophen 325 Mg Tablet) 650 mg PO Q6H PRN PRN Reason: Pain, Mild 1-3,fever,headache Calcium Carbonate (Calcium Carbonate 750 Mg Tab.Chew) 750 mg PO Q4H PRN PRN Reason: Heartburn Enoxaparin Sodium (Enoxaparin Sodium 40 Mg/0.4 Ml Syringe) 40 mg SUBCUT Q24H [facility] Last Admin: 01/25/25 01:04 Dose: 40 mg Documented By: ELODIA Ampicillin Sodium/Sulbactam (Sodium 3 gm/ Sodium Chloride) 100 mls @ 200 mls/hr IV Q6H [facility] Last Infusion: 01/25/25 08:02 Dose: Infused Documented By: KALYAN Magnesium Hydroxide (Milk Of Magnesia 30 Ml Oral.Susp) 30 ml PO DAILY PRN PRN Reason: Constipation Melatonin (Melatonin 3 Mg Tablet) 6 mg PO BEDTIME PRN PRN Reason: Insomnia Ondansetron HCl (Ondansetron Hcl 4 Mg/2 Ml Vial) 4 mg IVPUSH Q8H PRN PRN Reason: Nausea and Vomiting Sodium Chloride (0.9 % Sodium Chloride Flush 3 Ml Syringe) 3 ml IVFLUSH QSHIFT [facility] Last Admin: 01/25/25 09:02 Dose: 3 ml Documented By: LUIS Labs 01/25/25 04:00 01/25/25 04:00 Labs: Laboratory Results - last 24 hr 01/24/25 01/24/25 01/24/25 19:48 21:14 21:15 MCV 91.2 MCH 32.6 MCHC 35.8 RDW 11.8 Plt Count 233 MPV 9.5 Immature Gran % (Auto) 0.2 Neut % (Auto) 49.8 Lymph % (Auto) 38.2 Hand % (Auto) 8.0 Eos % (Auto) 3.5 Baso % (Auto) 0.3 Lymph # (Auto) 2.4 Hand # (Auto) 0.5 Eos # (Auto) 0.2 Baso # (Auto) 0.0 Abs Immat Gran (auto) 0.01 Absolute Neuts (auto) 3.2 Absolute Nucleated RBC 0.000 Nucleated RBC % (auto) 0.0 D-Dimer High Sensitivty < 150 Anion Gap 11 L Estim Creat Clear Calc 115.4 Estimated GFR > 60 Random Glucose 118 H Lactic Acid Calcium 9.3 Troponin I High Sens < 2.7 B-Natriuretic Peptide < 10 Urine Color Urine Appearance Urine pH Ur Specific [place] Urine Protein Urine Glucose (UA) Urine Ketones Urine Blood Urine Nitrite Ur Leukocyte Esterase Influenza Type A (PCR) NEGATIVE Influenza Type B (PCR) NEGATIVE RSV RNA Qual (PCR) NEGATIVE SARS-CoV-2 RNA (RT-PCR) NEGATIVE 01/24/25 01/24/25 01/25/25 21:25 22:50 04:00 MCV 93.9 MCH 32.1 MCHC 34.2 RDW 11.9 Plt Count 216 MPV 9.3 L Immature Gran % (Auto) 0.2 Neut % (Auto) 40.2 L Lymph % (Auto) 43.5 H [place] % (Auto) 11.6 H Eos % (Auto) 4.0 Baso % (Auto) 0.5 Lymph # (Auto) 2.4 Hand # (Auto) 0.6 Eos # (Auto) 0.2 Baso # (Auto) 0.0 Abs Immat Gran (auto) 0.01 Absolute Neuts (auto) 2.2 Absolute Nucleated RBC 0.000 Nucleated RBC % (auto) 0.0 D-Dimer High Sensitivty Anion Gap 10 L Estim Creat Clear Calc 139.2 Estimated GFR > 60 Random Glucose 93 Lactic Acid 0.7 Calcium 9.1 Troponin I High Sens B-Natriuretic Peptide Urine Color Yellow Urine Appearance Clear Urine pH 7.0 Ur Specific [place] 1.020 Urine Protein Negative Urine Glucose (UA) Negative Urine Ketones Trace Urine Blood Negative Urine Nitrite Negative Ur Leukocyte Esterase Negative Influenza Type A (PCR) Influenza Type B (PCR) RSV RNA Qual (PCR) SARS-CoV-2 RNA (RT-PCR) Assessment and Plan (1) Acute hypoxemic respiratory failure: Status: Acute (2) Multifocal pneumonia: Status: Acute (3) Accidental methadone overdose: Status: Acute (4) Opioid use disorder: Status: Acute Plan Patient is a 34-year-old male with aspiration pneumonia secondary to accidental overdose from methadone Acute hypoxemic respiratory failure secondary to multifocal pneumonia - Concern for aspiration in the setting of accidental opiate overdose - continue Unasyn and supplemental oxygen. - Monitor oxygen saturation and wean as tolerated. - No sepsis. - Speech eval - passed Mood disorder - Continue home mood stabilizers Opioid use disorder - On methadone DVT prophylaxis: Lovenox Full code Continued admission needed for aspiration pneumonia with acute hypoxic respiratory failure Quality Stroke Does the patient have a stroke diagnosis?: No VTE Prior VTE?: No VTE Risk Level:: Medical - moderate - high VTE Device Contraindication: Treatment Not Indicated VTE Drug Contraindication: N/A - Med Ordered
--- NOTE | 2025-01-25 11:52 | PC.NURSE ---
Addendum entered by Jackie Gillespie RN 01/25/25 11:56: JUANCARLOS Nicole Original Note: Methadone dose confirmed at [phone] by Alexa AHN see verification form in chart
--- NOTE | 2025-01-25 11:54 | HE.PHANOTE ---
METHADONE Pt last received 35mg on 01/24/25 @ 0855 per Alexa at [facility], .
--- NOTE | 2025-01-25 12:47 | MHC.CM.PN ---
Patient lives in an apt w/ S.O. in [place]. Currently residing at [facility]. Methadone through [facility]. Functionally independent. Denies use of services or DME. PCP in [facility]. He cannot recall name of provider or practice. HCP on file and verified. DP: Return to [facility]. Confirmed plan w/ safety and skill based pay manager Nikunj @ [phone]. Per Nikunj, [facility] staff will provide transport. CM will continue to follow.
[2025-01-25] MEDS: methADONE HCl 20 MG/2 ML ORAL.CONC 35 MG PO (14:37)
[2025-01-25] MEDS: OXcarbazepine 300 MG TABLET PO ×2 (14:38→20:28)
[2025-01-25] MEDS: ARIPiprazole 15 MG TABLET PO (14:38)
[2025-01-25] MEDS: FLUoxetine HCl 20 MG CAPSULE 40 MG PO (14:38)
[2025-01-25] MEDS: FLUoxetine HCl 20 MG CAPSULE PO (14:38)
[2025-01-25] MEDS: Atorvastatin Calcium 10 MG TABLET PO (20:27)
[2025-01-25] MEDS: Prazosin HCL 1 MG CAPSULE PO (20:28)
--- NOTE | 2025-01-25 23:40 | P.DS_ITS ---
DS: Providers Provider Date of Service: 01/26/25 Date of admission: 01/25/25 00:38 Date of discharge: 01/26/25 Primary care physician: Unknown Physician DS: Diagnosis Discharge Diagnosis (1) Acute hypoxemic respiratory failure: Status: Acute (2) Multifocal pneumonia: Status: Acute (3) Accidental methadone overdose: Status: Acute (4) Opioid use disorder: Status: Acute DS: Summary Hospital Course Hospital Course: admission H&P: This has a 33-year-old male with pertinent history of mood disorder, opiate use disorder on methadon who presents to the emergency department for evaluation of dyspnea. Of note, patient was admitted on 01/20 with accidental opioid overdose and discharged on 01/21. Patient states he has been having dyspnea for the last 2-3 days. It is worse with exertion. No orthopnea or PND. Minimal cough. Patient thinks the inciting factor was accidental methadone overdose. No chest pain or palpitations. No fever, chills, nausea, vomiting, abdominal pain, changes in urinary or bowel habits. In the emergency department, imaging with multifocal pneumonia. Also patient was found to be hypoxemic and requiring 3 L supplemental oxygen in the ER hospital course: Pt was admitted for acute hypoxic respiratory failure secondary to aspiration pneumonia from recent methadone overdose. he quickly improved with IV unasyn and was weaned off O2 and maintaining. he had a swallow study by [employer] that he passed. he feels ready to go home at this time. will send home with augmentin BID for 4 more days to complete a course of 5 days. Status at Discharge Functional status at discharge: independent ambulation Overall status at discharge: patient is back to baseline Time Attestation Discharge Coordination Time (in mins): 30 Quality: Safe Use of Opioids Does Pt have an Active Cancer Diagnosis on the Problem List?: No Quality: Stroke Does the patient have a stroke diagnosis?: No Physical Exam Vital Signs: Vital Signs: Last Vital Signs Temp 98.2 F 01/25/25 19:33 Pulse 79 01/25/25 19:33 Resp 18 01/25/25 19:33 BP 131/70 01/25/25 19:33 Pulse Ox 95 01/25/25 19:33 O2 Del Method Room Air 01/25/25 19:33 O2 Flow Rate 2.0 01/25/25 09:18 BMI result Body Mass Index 30.0 General: AOx3, no acute distress Resp: CTA bilaterally CVS: S1, S2, RRR GI: +BS, NT, no distention Skin: Warm, dry Neuro: Cranial nerves II-XII grossly intact bilaterally. Motor grossly intact bilaterally Extremities: No edema Psych: Appropriate affect DS: Data Data Completed and Pending Labs on day of discharge: Laboratory Results - last 24 hr 01/25/25 04:00 WBC 5.5 RBC 3.61 L Hgb 11.6 L Hct 33.9 L MCV 93.9 MCH 32.1 MCHC 34.2 RDW 11.9 Plt Count 216 MPV 9.3 L Immature Gran % (Auto) 0.2 Neut % (Auto) 40.2 L Lymph % (Auto) 43.5 H [place] % (Auto) 11.6 H Eos % (Auto) 4.0 Baso % (Auto) 0.5 Lymph # (Auto) 2.4 [place] # (Auto) 0.6 Eos # (Auto) 0.2 Baso # (Auto) 0.0 Abs Immat Gran (auto) 0.01 Absolute Neuts (auto) 2.2 Absolute Nucleated RBC 0.000 Nucleated RBC % (auto) 0.0 Sodium 142 Potassium 4.4 Chloride 108 Carbon Dioxide 28 Anion Gap 10 L BUN 13 Creatinine 0.92 Estim Creat Clear Calc 139.2 Estimated GFR > 60 Random Glucose 93 Calcium 9.1 Discharge Plan Discharge Anticipated Discharge Date/Time: 01/26/25 11:00 Patient Disposition: Home, Self-Care Discharge Diagnosis: acute hypoxic respiratory failure secondary to aspiration pneumonia from recent methadone overdose Referrals: Physician,Unknown J [Primary Care Provider, Medical] - 1 Week Discharge Medications: New amoxicillin-pot clavulanate 500-125 mg tablet 1 tab PO BID Qty: 7 0RF Continued fluoxetine 40 mg capsule 40 mg PO DAILY trazodone 50 mg tablet 50 mg PO BEDTIME PRN (Reason: insomnia) atorvastatin 10 mg tablet 10 mg PO BEDTIME prazosin 1 mg capsule 1 mg PO BEDTIME hydroxyzine HCl 50 mg tablet 50 - 100 mg PO QD-QID PRN (Reason: anxiety) oxcarbazepine 300 mg tablet 300 mg PO BID ciclopirox 8 % solution 1 appl topical BID PRN (Reason: Fungal Infection) fluoxetine 20 mg capsule 20 mg PO DAILY aripiprazole 15 mg tablet 15 mg PO DAILY methadone [Methadone Intensol] 10 mg/mL Concentrate 35 mg PO DAILY benzoyl peroxide [BP Wash] 5 % cleanser 1 appl topical DAILY diclofenac sodium 1 % gel 2 - 4 g topical QD-QID PRN (Reason: Pain) Discharge Orders: Discharge Order (Routine); Ordered 01/26/25 Ordered By: Laly Griffith Diet: Regular diet Activity on Discharge: As tolerated Stand Alone Forms: Patient Portal Discharge page Print Language: Moldovan Care Plan Goals: recover from pneumonia safe use of methdone for substance use disorder Health Concerns: acute hypoxic respiratory failure, aspiration pneumona, methadone overdose Plan of Treatment: continue augmentin BID x4 more days follow up with PCP within 1-2 weeks Assessment: see above Discharge Date/Time: 01/26/25 09:36
[2025-01-26] MEDS: Enoxaparin Sodium 40 MG/0.4 ML SYRINGE SUBCUT (00:34)
[2025-01-26] MEDS: Ampicillin Sodium/Sulbactam Na 3 GM in 0.9 % Sodium Chloride 100 ML IV ×2 (00:39→06:10)
[2025-01-26 03:55] VITALS: BP 125/70; PULSE 74; RESP 18; TEMP 36.8; O2SAT 95
[2025-01-26] MEDS: 0.9 % Sodium Chloride Flush 3 ML SYRINGE IVFLUSH (07:29)
[2025-01-26 07:30] VITALS: BP 115/63; PULSE 78; RESP 16; TEMP 36.3; O2SAT 97
[2025-01-26] MEDS: FLUoxetine HCl 20 MG CAPSULE PO (08:27)
[2025-01-26] MEDS: OXcarbazepine 300 MG TABLET PO (08:27)
[2025-01-26] MEDS: methADONE HCl 20 MG/2 ML ORAL.CONC 35 MG PO (08:27)
[2025-01-26] MEDS: ARIPiprazole 15 MG TABLET PO (08:27)
[2025-01-26] MEDS: FLUoxetine HCl 20 MG CAPSULE 40 MG PO (08:27)
[2025-01-26 08:30] LABS: Hematocrit 37.2 % (42.0-52.0); Hemoglobin 12.9 g/dl (14.0-18.0); Mean Corpuscular HGB Conc 34.7 g/dl (31.0-36.0); Mean Corpuscular Hemoglobin 32.1 pg (27.0-33.0); Mean Corpuscular Volume 92.5 fL (80.0-98.0); Mean Platelet Volume 9.8 fL (9.4-12.4); Platelet Count 249 X10*3/uL (160-400); Red Blood Count 4.02 X10*6/uL (4.60-5.80); Red Cell Distribution Width 11.9 % (11.0-16.0); White Blood Count 5.3 X10*3/uL (4.8-10.8)
[2025-01-26 08:47] LABS: Anion Gap 12 (12-20); Blood Urea Nitrogen 10 mg/dL (9-16); Calcium 9.4 mg/dL (8.4-10.2); Carbon Dioxide 25 mmol/L (22-29); Chloride 105 mmol/L (96-108); Creatinine Clr Calc Pharmacy 141.2; Estimated Glomerular Filt Rate > 60; Glucose Random 108 mg/dL (60-115); Potassium 4.2 mmol/L (3.3-5.1); Sodium 138 mmol/L (135-145)
--- NOTE | 2025-01-26 08:51 | MHC.CM.PN ---
Patient medically cleared for dc back to [facility], self care. LM for after school program teacher to arrange transport.
[2025-01-26 09:50] VITALS: BP 135/79; PULSE 83; RESP 16; TEMP 36.2; O2SAT 97
== END 2025-01-26 09:36 | disposition home or self-care (01) | DRG 137 ==
LOC: HO.ED 22:49 → HO.EDOVER 01-25 01:11 → HO.S3 01-25 07:08
PROVIDERS: Physician Assistant; Admitting Provider Student in an Organized Health Care Education/Training Program; Emergency Provider Emergency Medicine; Visit Provider Physician Assistant
DX: J69.0 Pneumonitis due to inhalation of food and vomit (principal); J96.01 Acute respiratory failure with hypoxia; F11.20 Opioid dependence, uncomplicated; Z20.822 Contact with and (suspected) exposure to COVID-19; T40.3X1 Poisoning by methadone, accidental (unintentional); Z87.891 Personal history of nicotine dependence; Z79.899 Other long term (current) drug therapy
CPT/HCPCS: 0241U; 36415; 71046; 71250; 80048; 81003; 83605; 83880; 84484; 85025; 85027; 85379; 87040; 92610; 93005; 99221; 99285; J0295; J0696; J1650; J1836

== ENCOUNTER → 2025-01-24 19:42 | Outpatient (BNV) | payer OTHER, SELFPAY | PROVIDERS: Admitting Provider Student in an Organized Health Care Education/Training Program; Emergency Provider Emergency Medicine; Visit Provider Internal Medicine | DX: R94.31 Abnormal electrocardiogram [ECG] [EKG] (principal); R06.02 Shortness of breath | CPT/HCPCS: 93010 ==

== ENCOUNTER → 2025-01-24 20:20 | Outpatient (BNV) | payer OTHER, SELFPAY | PROVIDERS: Emergency Provider Emergency Medicine; Visit Provider Specialist | DX: R91.8 Other nonspecific abnormal finding of lung field (principal) | CPT/HCPCS: 71250 ==

== ENCOUNTER → 2025-01-25 00:38 | Outpatient (BNV) | payer OTHER, SELFPAY | PROVIDERS: Admitting Provider Student in an Organized Health Care Education/Training Program; Emergency Provider Emergency Medicine; Visit Provider Student in an Organized Health Care Education/Training Program | DX: J96.01 Acute respiratory failure with hypoxia (principal); J18.9 Pneumonia, unspecified organism; T40.3X1A Poisoning by methadone, accidental (unintentional), initial encounter; F11.90 Opioid use, unspecified, uncomplicated | CPT/HCPCS: 99238; 99499 ==